=== PATIENT | male | born 1945 | race Caucasian/White ===

== ENCOUNTER 2016-04-16 15:09 | Inpatient (IN) | payer BC ==
[2016-04-16 15:18] VITALS: BMI 30.7
[2016-04-16] MEDS ORDERED: HYDROmorphone HCL CARPU-JECT 1 MG/1 ML DISP.SYRIN ONE ×2 (19:00→21:14)
[2016-04-16] MEDS ORDERED: CLINDAMYCIN 600MG PREMIX IVPB 50 ML IVPB ONE (19:05)
[2016-04-16] MEDS ORDERED: HYDROmorphone HCL CARPU-JECT 1 MG/1 ML DISP.SYRIN IVPUSH ONE (19:23)
--- NOTE | 2016-04-16 19:25 | PDOC ---
History of Present Illness - General History Source: Patient, Family Exam Limitations: No Limitations - History of Present Illness Initial Comments: 04/16/16 19:24 Patient was walking in one of his properties, when he stepped on a piece of wood that had a nail protruding, impaling the dorsum of right foot at instep. Patient states became progressively more painful, was seen by sports trainer on Saturday and was placed on antibiotics but since that time has progressively become more painful and swollen and red. Patient came on assistance of Dr. Nhan Tilley for evaluation. 04/16/16 20:10 Timing/Duration: reports: getting worse Severity: Yes: moderate Location: reports: feet (right foot ) Associated Symptoms: reports: denies symptoms, blisters, flushing <Nano Bullard - Last Filed: 04/16/16 20:10> <Ana Maria Menendez - Last Filed: 04/17/16 01:55> - General Chief Complaint: Redness To Affected Area Stated Complaint: RT FOOT INFECTION Time Seen by Provider: 04/16/16 19:01 Past History - Travel Traveled outside of the country in the last 30 days: No Close contact w/someone who was outside of country & ill: No - Past Medical History Cardiac Disorders: Yes GI Disorders: Yes (ileostomy) HTN: Yes Hypercholesterolemia: Yes - Surgical History Abdominal Surgery: Yes - Psycho/Social/Smoking Cessation Hx Suicidal Ideation: No Smoking Status: No Smoking History: Unknown if ever smoked Have you smoked in the past 12 months: No Number of Cigarettes Smoked Daily: 0 Hx Alcohol Use: Yes (Occasional) Drug/Substance Use Hx: No Substance Use Type: Alcohol Hx Substance Use Treatment: No <Nano Bullard - Last Filed: 04/16/16 20:10> <Ana Maria Menendez - Last Filed: 04/17/16 01:55> - Past Medical History Allergies/Adverse Reactions: Allergies Allergy/AdvReac Type Severity Reaction Status Date / Time amlodipine besylate Allergy Verified 04/17/16 00:25 [From [facility]] iodine [Iodine] Allergy Verified 04/16/16 15:15 Home Medications: Ambulatory Orders Cholecalciferol (Vitamin D3) [Vitamin D3 -] 1,000 unit NR DAILY #0 tab 07/10/11 Loperamide HCl [Imodium -] 4 mg PO AC #0 capsule 04/17/12 Psyllium Seed [Metamucil] 5.85 gm PO TID #0 packet 07/10/11 Alprazolam [Xanax] 0.5 mg PO Q4H PRN 04/16/16 Amlodipine/Atorvastatin [Amlodipine-Atorvast 10-10 mg] 10 each PO 04/16/16 Androgel 1.62 mg Q2D 04/16/16 Atorvastatin Ca [Lipitor] 20 mg PO HS 04/16/16 Cholecalciferol (Vitamin D3) [Vitamin D3] 5,000 unit PO 04/16/16 Doxazosin Mesylate [Cardura] 4 mg PO 04/16/16 Doxazosin Mesylate [Cardura] 4 mg PO 04/16/16 Fenofibrate Nanocrystallized [Fenofibrate] 145 mg PO 04/16/16 Icosapent Ethyl [Vascepa] 1 gm PO BID 04/16/16 Metoprolol Succinate [Toprol Xl -] 50 mg PO BID 04/16/16 Sertraline HCl [Zoloft] 150 mg PO HS 04/16/16 Sodium Bicarbonate - 1,300 mg PO TID 04/16/16 Review of Systems - Review of Systems Able to Perform ROS?: Yes Is the patient limited [place] proficient: Yes Constitutional: Yes: Symptoms Reported, See HPI, Chills, Malaise Respiratory: Yes: See HPI, Cough Musculoskeletal: Yes: Symptoms Reported, See HPI, Joint Swelling, Joint Stiffness Integumentary: Yes: Symptoms Reported, See HPI, Erythema Neurological: Yes: Tingling (diminished sensation to toes) All Other Systems: Reviewed and Negative <Nano Bullard - Last Filed: 04/16/16 20:10> *Physical Exam - Vital Signs Last Vital Signs Temp Pulse Resp BP Pulse Ox 97.4 F L 69 18 167/82 100 04/16/16 18:35 04/16/16 18:35 04/16/16 18:35 04/16/16 18:35 04/16/16 18:35 - Physical Exam General Appearance: Yes: Nourished, Appropriately Dressed, Apparent Distress, Mild Distress HEENT: positive: SADIQ, TMs Normal Neck: positive: Tender, Supple Respiratory/Chest: positive: Lungs Clear Gastrointestinal/Abdominal: positive: Soft Musculoskeletal: negative: Normal Inspection Extremity: positive: Tender, Swelling, Erythema (bright red erythema with swelling , significant with erythema extending to mid tibial area. Has tenderness extending from down into foot. Able to wiggle toes but sensation is diminished. Has a foul-smelling fluctuant blister to the anterior aspect of right foot at instep. With a puncture wound. No purulent drainage exuding. Has exquisite tenderness to all of foot). negative: Normal Capillary Refill, Normal Inspection, Normal Range of Motion Integumentary: positive: Warm, Pale, Swelling Neurologic: positive: signal maintainer helper II-XII NML intact, Fully Oriented, Alert, Normal Mood/ Affect, Normal Response, Motor Strength 5/5 <Nano Bullard - Last Filed: 04/16/16 20:10> - Vital Signs Last Vital Signs Temp Pulse Resp BP Pulse Ox 97.4 F L 69 18 167/82 100 04/16/16 18:35 04/16/16 18:35 04/16/16 18:35 04/16/16 18:35 04/16/16 18:35 <Ana Maria Menendez - Last Filed: 04/17/16 01:55> ED Treatment Course - LABORATORY CBC & Chemistry Diagram: 04/16/16 19:10 04/16/16 19:10 - RADIOLOGY Radiology Studies Ordered: Category Date Time Status CHEST PA & LAT [RAD] Stat Radiology 04/16/16 19:04 Ordered FOOT-RIGHT [RAD] Stat Radiology 04/16/16 19:08 Ordered <Nano Bullard - Last Filed: 04/16/16 20:10> - LABORATORY CBC & Chemistry Diagram: 04/16/16 19:10 04/16/16 19:10 - ADDITIONAL ORDERS Additional order review: Laboratory Results 04/16/16 19:10 INR 1.51 H 04/16/16 19:10 RBC 5.83 H D MCV 83.8 MCHC 31.6 L RDW 19.6 H D MPV 8.7 Neutrophils % Y Lymphocytes % Y <Ana Maria Menendez - Last Filed: 04/17/16 01:55> Progress Note - Progress Note Progress Note: Severe cellulitis of right foot. Discussed case with Dr. Herzog who agrees will be admitted, Dr. Dutton will be contacted, Dr. Hairston consult <Nano Bullard - Last Filed: 04/16/16 20:10> Medical Decision Making - Medical Decision Making 04/16/16 20:20 71-year-old male was initially seen in fast track for a foot wound and transferred to the main ER because the patient will need admission for IV antibiotics and cellulitis. Patient has a complex past medical history as described by Dr. Selby , who presently is evaluating the patient. Infectious disease has been consulted and Dr. Christian has is recommending specific antibiotics 04/17/16 01:55 <Ana Maria Menendez - Last Filed: 04/17/16 01:55> *DC/Admit/Observation/Transfer - Discharge Dispostion Admit: Yes <Nano Bullard - Last Filed: 04/16/16 20:10> <Ana Maria Menendez - Last Filed: 04/17/16 01:55> Diagnosis at time of Disposition: Cellulitis and abscess of foot - Discharge Dispostion Condition at time of disposition: Stable - Referrals
[2016-04-16 19:58] LABS: MCH 26.5 pg (25.7-33.7); MCHC 31.6 g/dl (32.0-35.9); MEAN CELL VOLUME 83.8 fl (80-96); MEAN PLT VOLUME 8.7 fl (7.5-11.1); PLATELET COUNT 199 K/MM3 (134-434); RDW 19.6 % (11.9-15.9); WHITE BLOOD COUNT 13.1 K/mm3 (4.0-10.0)
[2016-04-16] MEDS ORDERED: ALPRAZolam 0.25 MG TABLET PO PRN (20:01)
[2016-04-16] MEDS ORDERED: HYDROmorphone HCL CARPU-JECT 1 MG/1 ML DISP.SYRIN IVPUSH PRN (20:06)
[2016-04-16 20:11] LABS: INR 1.51 (0.82-1.09); PROTHROMBIN TIME (PATIENT) 16.8 SEC (9.98-11.88)
[2016-04-16 20:13] LABS: URINE APPEARANCE CLEAR; URINE BILIRUBIN NEGATIVE (NEGATIVE); URINE COLOR YELLOW; URINE GLUCOSE (UA) NEGATIVE (NEGATIVE); URINE KETONE NEGATIVE (NEGATIVE); URINE LEUK ESTERASE NEGATIVE (NEGATIVE); URINE NITRITE NEGATIVE (NEGATIVE); URINE UROBILINOGEN NEGATIVE E.U./dl (0.2-1.0)
[2016-04-16 20:22] LABS: URINE BLOOD 1+ (NEGATIVE); URINE PROTEIN 1+ (NEGATIVE)
--- NOTE | 2016-04-16 20:22 | HP ---
Admitting History and Physical - Primary Care Physician PCP: Nhan Herzog - Admission Chief Complaint: Right foot pain and swelling History of Present Illness: Stepped on a nail at work and was unaware of the injury to his right foot until noting bleeding when removing his shoe last Saturday. Saw his Sole Stapler Welt Dr Maguire, who did an x-ray and ordered cefuroxime 250 mg po bid. Seen again today and the superintendent logging called me to relate the history and say that the swelling and redness had increased. I recommended he come to ER for likely need for admission for cellulitis, rule out possible abscess. Denies chest discomfort. Increased pain noted in the right foot. 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 - Smoking History Smoking history: Unknown if ever smoked Have you smoked in the past 12 months: No Aproximately how many cigarettes per day: 0 - Alcohol/Substance Use Hx Alcohol Use: Yes (Occasional) <Nhan Herzog - Last Filed: 04/16/16 20:49> Home Medications <Nhan Herzog - Last Filed: 04/16/16 20:49> <Ana Maria Menendez - Last Filed: 04/16/16 20:54> - Allergies Allergies/Adverse Reactions: Allergies Allergy/AdvReac Type Severity Reaction Status Date / Time iodine [Iodine] Allergy Verified 04/16/16 15:15 benazepril HCl [From Lotrel] AdvReac Unverified 04/16/16 20:29 - Home Medications Home Medications: Ambulatory Orders Cholecalciferol (Vitamin D3) [Vitamin D3 -] 1,000 unit NR DAILY #0 tab 07/10/11 Loperamide HCl [Imodium -] 4 mg PO AC #0 capsule 07/10/11 Psyllium Seed [Metamucil] 5.85 gm PO TID #0 packet 07/10/11 Alprazolam [Xanax] 0.5 mg PO Q4H PRN 04/16/16 Amlodipine/Atorvastatin [Amlodipine-Atorvast 10-10 mg] 10 each PO 04/16/16 Androgel 1.62 mg Q2D 04/16/16 Atorvastatin Ca [Lipitor] 20 mg PO HS 04/16/16 Cholecalciferol (Vitamin D3) [Vitamin D3] 5,000 unit PO 04/16/16 Doxazosin Mesylate [Cardura] 4 mg PO 04/16/16 Doxazosin Mesylate [Cardura] 4 mg PO 04/16/16 Fenofibrate Nanocrystallized [Fenofibrate] 145 mg PO 04/16/16 Icosapent Ethyl [Vascepa] 1 gm PO BID 04/16/16 Metoprolol Succinate [Toprol Xl -] 50 mg PO BID 04/16/16 Sertraline HCl [Zoloft] 150 mg PO HS 04/16/16 Sodium Bicarbonate - 1,300 mg PO TID 04/16/16 Family Disease History - Family Disease History Family History: Unremarkable <Nhan Herzog - Last Filed: 04/16/16 20:49> Review of Systems - Review of Systems Constitutional: reports: Chills, Lethargy Eyes: reports: No Symptoms HENT: reports: No Symptoms Neck: reports: No Symptoms Cardiovascular: reports: No Symptoms Respiratory: reports: No Symptoms Gastrointestinal: reports: No Symptoms Genitourinary: reports: No Symptoms Musculoskeletal: reports: Other (Foot pain as above) Integumentary: reports: Wound (plantar aspect of right foot puncture wound) Endocrine: reports: No Symptoms Psychiatric: reports: Anxiety <Nhan Herzog - Last Filed: 04/16/16 20:49> Physical Examination Vital Signs: Vital Signs Temperature 97.4 F L 04/16/16 18:35 Pulse Rate 69 04/16/16 18:35 Respiratory Rate 18 04/16/16 18:35 Blood Pressure 167/82 04/16/16 18:35 O2 Sat by Pulse Oximetry (%) 100 04/16/16 18:35 Constitutional: Yes: Anxious, Moderate Distress Eyes: Yes: Conjunctiva Clear HENT: Yes: Atraumatic Neck: Yes: Supple Cardiovascular: Yes: Regular Rate and Rhythm Respiratory: Yes: CTA Bilaterally Gastrointestinal: Yes: Normal Bowel Sounds, Other (ostomies). No: Ascites, Palpable Mass, Pulsatile Mass, Tenderness ...Rectal Exam: Yes: Deferred Extremities: Yes: Erythema, Other (swelling right foot puncture wound plantar surface below second toe) Integumentary: Yes: Erythema (right foot) Neurological: Yes: Alert, Oriented Labs: CBC, BMP 04/16/16 19:10 <Nhan Herzog - Last Filed: 04/16/16 20:49> Vital Signs: Vital Signs Temperature 97.4 F L 04/16/16 18:35 Pulse Rate 69 04/16/16 18:35 Respiratory Rate 18 04/16/16 18:35 Blood Pressure 167/82 04/16/16 18:35 O2 Sat by Pulse Oximetry (%) 100 04/16/16 18:35 Labs: CBC, BMP 04/16/16 19:10 04/16/16 19:10 <Ana Maria Menendez - Last Filed: 04/16/16 20:54> Problem List - Problems (1) Cellulitis and abscess of foot Assessment/Plan: Puncture wound IV antibiotics r/o abscess Be on alert for gangrenous changes ID assessment Possible surgical assessment as needed Code(s): L03.119 - CELLULITIS OF UNSPECIFIED PART OF LIMB L02.619 - CUTANEOUS ABSCESS OF UNSPECIFIED FOOT (2) Dyslipidemia Assessment/Plan: Severe hypertriglyceridemia with very low HDL-C currently stable on last office testing Code(s): E78.5 - HYPERLIPIDEMIA, UNSPECIFIED (3) Insulin resistance Assessment/Plan: Monitor diet HBA1C testing has been normal Code(s): E88.81 - METABOLIC SYNDROME (4) Acidosis, hyperchloremic 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
[2016-04-16 20:29] LABS: ANISOCYTOSIS 2+; PLATELET COMMENT2 NO CLUMPING NOTED; PLATELET ESTIMATE ADEQUATE (NORMAL)
[2016-04-16 20:30] LABS: DOHLE BODIES 1+; MICROCYTOSIS 1+; OVALOCYTES 1+
[2016-04-16 20:41] LABS: ALBUMIN 3.7 g/dl (3.4-5.0)
[2016-04-16 20:43] LABS: BILIRUBIN,TOTAL 0.7 mg/dL (0.2-1.0); CREATININE 1.7 mg/dL (0.7-1.3); TOT PROT 7.6 g/dl (6.4-8.2)
--- NOTE | 2016-04-16 20:55 | PDOC ---
*Physical Exam - Vital Signs Last Vital Signs Temp Pulse Resp BP Pulse Ox 97.4 F L 69 18 167/82 100 04/16/16 18:35 04/16/16 18:35 04/16/16 18:35 04/16/16 18:35 04/16/16 18:35 ED Treatment Course - LABORATORY CBC & Chemistry Diagram: 04/16/16 19:10 04/16/16 19:10 - ADDITIONAL ORDERS Additional order review: Laboratory Results 04/16/16 04/16/16 04/16/16 19:55 19:10 19:10 INR Sodium 135 L Potassium 4.5 Chloride 105 Carbon Dioxide 21 Anion Gap 9 BUN 31 H D Creatinine 1.7 H D Creat Clearance w eGFR 39.93 Random Glucose 90 Calcium 9.0 Total Bilirubin 0.7 D AST 35 D ALT 44 D Alkaline Phosphatase 54 D C-Reactive Protein 16.6 H Total Protein 7.6 Albumin 3.7 Urine Color Yellow Urine Appearance Clear Urine pH 6.0 Ur Specific [place] 1.017 Urine Protein 1+ H Urine Glucose (UA) Negative Urine Ketones Negative Urine Blood 1+ H Urine Nitrite Negative Urine Bilirubin Negative Urine Urobilinogen Negative Ur Leukocyte Esterase Negative 04/16/16 19:10 INR 1.51 H Sodium Potassium Chloride Carbon Dioxide Anion Gap BUN Creatinine Creat Clearance w eGFR Random Glucose Calcium Total Bilirubin AST ALT Alkaline Phosphatase C-Reactive Protein Total Protein Albumin Urine Color Urine Appearance Urine pH Ur Specific [place] Urine Protein Urine Glucose (UA) Urine Ketones Urine Blood Urine Nitrite Urine Bilirubin Urine Urobilinogen Ur Leukocyte Esterase 04/16/16 19:10 RBC 5.83 H D MCV 83.8 MCHC 31.6 L RDW 19.6 H D MPV 8.7 Neutrophils % 78.0 Lymphocytes % 6.0 L D Monocytes % 10.0 Eosinophils % 1.0 *DC/Admit/Observation/Transfer Diagnosis at time of Disposition: Cellulitis and abscess of foot - Discharge Dispostion Condition at time of disposition: Stable Admit: Yes - Referrals Referrals: Nhan Herzog MD [Primary Care Provider] - - Patient Instructions - Post Discharge Activity
[2016-04-16] MEDS ORDERED: VANCOMYCIN 1 GRAM (PRE-DOCKED) 250 ML IVPB SCH (21:00)
[2016-04-16] MEDS ORDERED: SODIUM CHLORIDE 1,000 ML IV SCH (21:15)
[2016-04-16] MEDS ORDERED: VANCOMYCIN 1 GRAM (PRE-DOCKED) 250 ML IVPB ONE (21:41)
[2016-04-16] MEDS ORDERED: PIPERACILLIN/TAZOB 3.375 GM 50 ML IVPB ONE (21:42)
[2016-04-16] MEDS: PIPERACILLIN/TAZOB 3.375 GM 50 ML IVPB SCH (22:04)
[2016-04-16] MEDS: HEPARIN NA (PORCINE) 5,000 UNITS/ML 1ML VIAL SQ SCH (23:59)
[2016-04-16] MEDS: amLODIPine BESYLATE 10 MG TABLET (FP) PO SCH (23:59)
[2016-04-16] MEDS: SERTRALINE HCL 50 MG TABLET (FP) PO SCH (23:59)
[2016-04-17] MEDS ORDERED: HYDROmorphone HCL CARPU-JECT 1 MG/1 ML DISP.SYRIN ONE ×3 (00:05→05:02)
[2016-04-17] MEDS: HYDROmorphone HCL CARPU-JECT 1 MG/1 ML DISP.SYRIN IVPB PRN ×8 (02:24→22:34)
[2016-04-17] MEDS: PIPERACILLIN/TAZOB 3.375 GM 50 ML IVPB SCH ×2 (03:51→18:01)
[2016-04-17] MEDS ORDERED: PIPERACILLIN/TAZOB 3.375 GM 50 ML IVPB ONE (05:54)
[2016-04-17] MEDS: SODIUM BICARBONATE 650 MG TABLET PO SCH ×4 (07:43→21:24)
[2016-04-17 08:09] LABS: BASOPHIL 0.3 % (0-2.0); EOSINOPHIL 1.9 % (0-4.5); MCH 26.9 pg (25.7-33.7); MCHC 32.2 g/dl (32.0-35.9); MEAN CELL VOLUME 83.6 fl (80-96); MEAN PLT VOLUME 8.4 fl (7.5-11.1); NEUTROPHILS 81.8 % (42.8-82.8); PLATELET COUNT 196 K/MM3 (134-434); RDW 19.1 % (11.9-15.9); WHITE BLOOD COUNT 10.3 K/mm3 (4.0-10.0)
[2016-04-17 09:07] LABS: ALBUMIN 3.2 g/dl (3.4-5.0); BILIRUBIN,TOTAL 0.5 mg/dL (0.2-1.0); CALCIUM 8.8 mg/dL (8.5-10.1); CREATININE 1.5 mg/dL (0.7-1.3); TOT PROT 6.5 g/dl (6.4-8.2)
--- NOTE | 2016-04-17 09:21 | PN ---
Progress Note, Physician Chief Complaint: Right foot cellulitis/abscess from puncture wound History of Present Illness: As per admission note, nail puncture wound from Saturday04/13/16, seen by Mud Engineer and treated with oral cefurxime 250 mg po bid Seen again yesterday with worsening of cellulitic reaction, now associated with increased pain. Admitted via ER and started on Zosyn and Vancomycin. X-ray reviewed. This AM has persistence of pain, redness and swelling, now with drainage of pus from puncture wound site. Seen by ID and surgeon notified. May require I+D. Denies new chest discomfort, palpitations, LAMA. Marked anxiety noted. - Current Medication List Current Medications: Active Medications Alprazolam (Xanax -) 1 mg PO Q6H PRN PRN Reason: ANXIETY Amlodipine Besylate (Norvasc -) 10 mg PO DAILY [facility] Last Admin: 04/16/16 23:59 Dose: Not Given Doxazosin Mesylate (Cardura -) 4 mg PO DAILY [facility] Heparin Sodium (Porcine) (Heparin -) 5,000 unit SQ BID [facility] Last Admin: 04/16/16 23:59 Dose: 5,000 unit Hydromorphone HCl (Dilaudid Injection -) 1 mg IVPB Q2H PRN PRN Reason: PAIN Last Admin: 04/17/16 04:57 Dose: 1 mg Vancomycin HCl (Vancomycin (Pre-Docked)) 250 mls @ 150 mls/hr IVPB BID@0900, 2100 [facility] Last Admin: 04/16/16 23:31 Dose: 150 mls/hr Piperacillin Sod/Tazobactam Sod (Zosyn 3.375gm Ivpb (Pre-Docked)) 50 mls @ 100 mls/hr IVPB Q8H-IV [facility] Last Admin: 04/17/16 03:51 Dose: 100 mls/hr Sodium Chloride (Normal Saline -) 1,000 mls @ 42 mls/hr IV ASDIR [facility] Last Admin: 04/16/16 22:04 Dose: 42 mls/hr Metoprolol Succinate (Toprol Xl -) 50 mg PO BID [facility] Last Admin: 04/17/16 00:00 Dose: Not Given Sertraline HCl (Zoloft -) 150 mg PO DAILY [facility] Last Admin: 04/16/16 23:59 Dose: Not Given Sodium Bicarbonate (Sodium Bicarbonate -) 1,300 mg PO TID [facility] Last Admin: 04/17/16 07:43 Dose: 1,300 mg - Objective Vital Signs: Vital Signs Temperature 98.3 F 04/17/16 06:30 Pulse Rate 98 H 04/17/16 06:30 Respiratory Rate 20 04/17/16 06:30 Blood Pressure 157/72 04/17/16 06:30 O2 Sat by Pulse Oximetry (%) 100 04/16/16 18:35 Constitutional: Yes: Well Nourished, Anxious Eyes: Yes: Conjunctiva Clear HENT: Yes: WNL Neck: Yes: Supple Cardiovascular: Yes: Regular Rate and Rhythm Respiratory: Yes: CTA Bilaterally Gastrointestinal: Yes: Normal Bowel Sounds, Soft, Other (ostomies). No: Palpable Mass, Tenderness Extremities: Yes: Other (Right foot with erythema, drainage form puncture wound site on plantar surface and marked pain to local palpation) Neurological: Yes: Alert, Oriented Labs: CBC, BMP 04/17/16 08:00 04/17/16 08:00 INR, PTT INR 1.51 (0.82-1.09) H 04/16/16 19:10 - ....Imaging Chest X-ray: Image Reviewed X-ray: Image Reviewed (Right Foot) Problem List - Problems (1) Cellulitis and abscess of foot Assessment/Plan: Puncture wound IV antibiotics Likely abscess Be on alert for gangrenous changes ID assessment Surgical assessment pending Code(s): L03.119 - CELLULITIS OF UNSPECIFIED PART OF LIMB L02.619 - CUTANEOUS ABSCESS OF UNSPECIFIED FOOT (2) Dyslipidemia Assessment/Plan: Severe hypertriglyceridemia with very low HDL-C currently stable on last office testing Code(s): E78.5 - HYPERLIPIDEMIA, UNSPECIFIED (3) Insulin resistance Assessment/Plan: Monitor diet HBA1C testing has been normal Labs reviewed Code(s): E88.81 - METABOLIC SYNDROME (4) Acidosis, hyperchloremic 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
--- NOTE | 2016-04-17 09:29 | PN ---
Progress Note (short form) - Note Progress Note: ID Consult dictated imp/reccd 71 year old man with abscess on sole of foot he stepped on a nail last Saturday saw podiatry on Saturday started on ceftin, went back to podiatry on Saturday who sent him to ED no fevers or chills UTD on tetanus vaccine history of MRSA (remote)- thigh abscess vanco/zosyn surgical consult- d/w Dr Hairston f/u cultures f/u vancomycin trough d/w Dr Herzog
[2016-04-17] MEDS ORDERED: DOXAZOSIN MESYLATE 4 MG TABLET PO SCH (10:00)
[2016-04-17] MEDS ORDERED: HYDROmorphone HCL CARPU-JECT 2 MG/1 ML DISP.SYRIN ONE ×2 (10:09→14:33)
--- NOTE | 2016-04-17 11:02 | EKG ---
Test Reason : Blood Pressure : / mmHG Vent. Rate : 069 BPM Atrial Rate : 267 BPM P-R Int : 000 ms QRS Dur : 108 ms QT Int : 414 ms P-R-T Axes : 032 040 074 degrees QTc Int : 443 ms SINUS RHYTHM INCOMPLETE RIGHT BUNDLE BRANCH BLOCK ABNORMAL ECG WHEN COMPARED WITH ECG OF 02-JUL-2011 13:23, INCOMPLETE RIGHT BUNDLE BRANCH BLOCK IS NOW PRESENT Confirmed by CHAPINCITO BRYANT MD ([id number]) on 04/17/2016 11:02:06 AM Referred By: Confirmed By:CHAPINCITO BRYANT MD
[2016-04-17] MEDS: SERTRALINE HCL 50 MG TABLET (FP) PO SCH (11:49)
[2016-04-17] MEDS: amLODIPine BESYLATE 10 MG TABLET (FP) PO SCH (11:49)
[2016-04-17] MEDS: METOPROLOL SUCCINATE 50 MG TAB.SR.24H (FP) PO SCH ×3 (11:49→21:24)
[2016-04-17] MEDS: HEPARIN NA (PORCINE) 5,000 UNITS/ML 1ML VIAL SQ SCH ×2 (12:02→21:23)
[2016-04-17] MEDS ORDERED: LIDOCAINE HCL 1%, 10 MG/ML (20ML VIAL) ONE (12:22)
[2016-04-17] MEDS ORDERED: MIDAZOLAM HCL 2 MG/2 ML SINGLE DOSE VIAL ONE ×2 (12:37→12:43)
--- NOTE | 2016-04-17 12:37 | PN ---
Progress Note (short form) - Note Progress Note: Vascular surgery Pt seen and examined in ER Palpable pulses. Right foot trauma from nail. Will take to OR for incision and drainage. Jose Alejandro Hairston dO
[2016-04-17] MEDS ORDERED: PROPOFOL 20 ML ONE (12:45)
[2016-04-17] MEDS ORDERED: LIDOCAINE HCL 1%, 10 MG/ML (50 mL VIAL) IJ ONE (12:47)
--- NOTE | 2016-04-17 13:09 | OP ---
Operative Note - Note: Operative Date: 04/17/16 Pre-Operative Diagnosis: Right foot abscess Operation: Incision and drainage of right foot abscess Post-Operative Diagnosis: Same as Pre-op Surgeon: Jose Alejandro Hairston Anesthesia: Fractional Estimated Blood Loss (mls): 10 Operative Report Dictated: Yes
[2016-04-17] MEDS ORDERED: ONDANSETRON 4 MG/2 ML VIAL IVPUSH PRN (13:13)
--- NOTE | 2016-04-17 13:14 | PN ---
Progress Note (short form) - Note Progress Note: Vascular Surgery right foot incision and drainage performed. Cx of wound taken. Minimal pus. Two incisions made to decompress foot. Will follow. Daily 1/2 inch iodoform dressing changes. IV antibiotics Jose Alejandro Hairston DO
[2016-04-17] MEDS ORDERED: LACTATED RINGERS SOLUTION 1,000 ML IV SCH (13:15)
[2016-04-17] MEDS ORDERED: PIPERACILLIN/TAZOB 3.375 GM/50 ML PRE-DOCKED IVPB ONE (14:10)
[2016-04-17] MEDS ORDERED: HYDROmorphone HCL CARPU-JECT 2 MG/1 ML DISP.SYRIN IVPB ONE (14:35)
[2016-04-17] MEDS ORDERED: VANCOMYCIN 1 GRAM (PRE-DOCKED) 1,000 MG/250 ML BAG IVPB ONE (14:41)
--- NOTE | 2016-04-17 16:33 | CONS ---
DATE OF CONSULTATION: DATE OF DICTATION: 04/17/2016 INFECTIOUS DISEASE CONSULTATION REQUESTING PHYSICIAN: Nhan Herzog M.D. HISTORY OF PRESENT ILLNESS: This is a 71-year-old man. He stepped on a nail on Saturday at work. He was unaware of this all day until he noted bleeding when he removed his shoe that evening. He saw his engraver tender on Saturday, who gave him some Ceftin, which he took through the weekend. He returned on Saturday for a wound check. The foot was markedly worse. He was having a lot of pain. He noted chills but no fever, and the engraver tender advised admission. The patient denies any fevers. He does have chills. He notes pain in his foot. He has no nausea, vomiting, diarrhea, or dysuria. He is up to date on his tetanus vaccine. PAST MEDICAL HISTORY: Notable for hypertension, hyperlipidemia, hepatitis C, renal insufficiency, B12 deficiency. He has had a prior MRSA thigh abscess, and he has a history of testosterone deficiency. 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 He has apparently had trouble with poor wound healing, having several wound dehiscence postoperatively. Bilateral knee replacement. ALLERGIES: He is allergic to IODINE and BENAZEPRIL. MEDICATION: His medications as an outpatient include vitamin D3, Imodium, Metamucil, Xanax, amlodipine, atorvastatin, Androgel, Cardura, fenofibrate, Vascepa, Toprol XL, Zoloft, and sodium bicarbonate. FAMILY HISTORY: Unremarkable. SOCIAL HISTORY: He is . He lives with his . There is no history of any cigarette use. REVIEW OF SYSTEMS: Notable for chills and foot pain. PHYSICAL EXAMINATION: General: He is awake and alert. Vital signs: Temperature 98.3, pulse 98, blood pressure 157/72, respiratory rate 20. He is saturating 100%. HEENT: Normocephalic. Eyes are anicteric. Neck: Supple. Lungs: Clear to auscultation. Heart: Regular rate and rhythm. Abdomen: Soft, nontender. Extremities: Notable for well healed scars on both his knees from bilateral knee replacements, and his right foot he has an abscess on the dorsal surface, on the bottom of his foot, that looks like it is with a small amount of purulent drainage. He notes pain on palpation of his foot. LABORATORY: Notable for white count of 13.1 on admission, 10.3 this morning. Hemoglobin is 14.4, platelets of 196, INR is 1.5. BUN and creatinine are 27 and 1.5. LFTs are normal. CRP is 16.6 with sedimentation rate of 25. Urinalysis is notable for no leukocyte esterase, 1+ blood. Blood cultures and cultures of the abscess are pending. Chest x-ray is negative, there are no obvious signs of osteoarthritis on the foot, and chest x-ray is negative for infiltrate. IMPRESSION: In summary, this is a 71-year-old man with a foot abscess of his right foot, started on Ceftin who is now on vancomycin and Zosyn. Surgical consultation with Dr. Hairston. He needs drainage of the abscess. Would follow up his cultures. Would follow up a vancomycin level. All of the above with discussed with Dr. Herzog and the patient. He has a history of methicillin resistant Staphylococcus aureus in the distant past. CAROL GAN M.D. [id number]
[2016-04-17] MEDS: SODIUM CHLORIDE 1,000 ML IV SCH (17:16)
[2016-04-17] MEDS: VANCOMYCIN 1 GRAM (PRE-DOCKED) 250 ML IVPB SCH (21:23)
[2016-04-18] MEDS: HYDROmorphone HCL CARPU-JECT 1 MG/1 ML DISP.SYRIN IVPB PRN ×7 (00:59→20:31)
[2016-04-18] MEDS: PIPERACILLIN/TAZOB 3.375 GM 50 ML IVPB SCH ×3 (02:35→18:16)
[2016-04-18] MEDS: SODIUM BICARBONATE 650 MG TABLET PO SCH ×3 (06:44→22:05)
[2016-04-18 07:29] LABS: BASOPHIL 0.4 % (0-2.0); EOSINOPHIL 1.6 % (0-4.5); MCHC 32.4 g/dl (32.0-35.9); MEAN CELL VOLUME 83.2 fl (80-96); MEAN PLT VOLUME 8.6 fl (7.5-11.1); NEUTROPHILS 78.2 % (42.8-82.8); PLATELET COUNT 197 K/MM3 (134-434); RDW 19.2 % (11.9-15.9); WHITE BLOOD COUNT 7.2 K/mm3 (4.0-10.0)
--- NOTE | 2016-04-18 08:04 | OP ---
DATE OF OPERATION: 04/17/2016 PREOPERATIVE DIAGNOSIS: Right foot abscess. POSTOPERATIVE DIAGNOSIS: Right foot abscess. PROCEDURE: Incision and drainage of right foot. SURGEON: Jose Alejandro rCaft DO ANESTHESIA: Fractional. BLOOD LOSS: 10 mL. INDICATION: The patient is a 71-year-old male who comes in after having trauma from a nail to his right foot last Saturday. He has been following up with his junior engineer as an outpatient, getting antibiotics, but he saw his junior engineer yesterday and he said that he should probably go into the hospital because it did not look good. The patient was seen in the emergency room, had erythema of his right forefoot and drainage from his right plantar aspect from the puncture site of the nail. It was felt that he would need an incision and drainage. The patient was consented for the procedure, understanding all risks, benefits, and alternatives. He was then taken to the operating room. DESCRIPTION OF PROCEDURE: Once in the operating room, he was laid on the operating table in supine manner. The area of the right foot was prepped and draped in a sterile surgical manner. We then injected 20 mL of lidocaine 1% on the forefoot and in the plantar aspect of the right foot between the 1st and 2nd toe. We then went ahead and took a 15-blade and made a 3-cm incision on the plantar aspect at the entry site of the nail, and then we made another 3-cm incision on the forefoot between the 1st and 2nd toe where the area was indurated. Minimal pus came out. The surgical site was then cultured. We then went ahead and used a mosquito clamp and we were able to break up any pockets of abscess that we could find in the area. The wound was then copiously irrigated and 1/2-inch Iodoform packing was placed from the forefoot to the plantar site. We then went ahead and placed ABD pads and Kerlix. The patient tolerated the procedure with no complication. The patient was transferred to the PACU in stable condition. Total blood loss 10 mL. JOSE ALEJANDRO CRAFT DO PROPERTY MANAGEMENT SPECIALIST/[id number]
--- NOTE | 2016-04-18 08:46 | PN ---
Progress Note, Physician Chief Complaint: Right foot cellulitis/abscess from puncture wound History of Present Illness: As per admission note, nail puncture wound from Saturday04/13/16, seen by Sign Hanger Supervisor and treated with oral cefurxime 250 mg po bid Seen again Saturday with worsening of cellulitic reaction, now associated with increased pain. Admitted via ER and started on Zosyn and Vancomycin and seen by ID and surgeon. I+D of right foot infected area/abscess performed yesterday with incisions on dorsal and plantar aspects of foot. Case discussed with Dr Hairston. Note appreciated. Denies new chest discomfort, palpitations, LAMA. Marked anxiety persists. Still requires pain medication. - Current Medication List Current Medications: Active Medications Alprazolam (Xanax -) 1 mg PO Q6H PRN PRN Reason: ANXIETY Amlodipine Besylate (Norvasc -) 10 mg PO DAILY [facility] Doxazosin Mesylate (Cardura -) 4 mg PO DAILY [facility] Heparin Sodium (Porcine) (Heparin -) 5,000 unit SQ BID [facility] Last Admin: 04/17/16 21:23 Dose: 5,000 unit Hydromorphone HCl (Dilaudid Injection -) 1.5 mg IVPB Q2H PRN PRN Reason: PAIN Last Admin: 04/18/16 07:47 Dose: 1.5 mg Lactated Ringer's (Lactated Ringers Solution) 1,000 mls @ 75 mls/hr IV ASDIR [facility] Last Admin: 04/17/16 15:30 Dose: Not Given Sodium Chloride (Normal Saline -) 1,000 mls @ 42 mls/hr IV ASDIR [facility] Last Admin: 04/17/16 17:16 Dose: Not Given Vancomycin HCl (Vancomycin (Pre-Docked)) 250 mls @ 150 mls/hr IVPB BID@0900, 2100 [facility] Last Admin: 04/17/16 21:23 Dose: 150 mls/hr Piperacillin Sod/Tazobactam Sod (Zosyn 3.375gm Ivpb (Pre-Docked)) 50 mls @ 100 mls/hr IVPB Q8H-IV [facility] Last Admin: 04/18/16 02:35 Dose: 100 mls/hr Metoprolol Succinate (Toprol Xl -) 50 mg PO BID [facility] Last Admin: 04/17/16 21:24 Dose: 50 mg Sertraline HCl (Zoloft -) 150 mg PO DAILY [facility] Sodium Bicarbonate (Sodium Bicarbonate -) 1,300 mg PO TID [facility] Last Admin: 04/18/16 06:44 Dose: 1,300 mg - Objective Vital Signs: Vital Signs Temperature 98.8 F 04/18/16 05:50 Pulse Rate 70 04/18/16 05:50 Respiratory Rate 22 04/18/16 05:50 Blood Pressure 140/80 04/18/16 05:50 O2 Sat by Pulse Oximetry (%) 95 04/17/16 21:00 Constitutional: Yes: Anxious, Moderate Distress (in pain during examination and re-insertion of wound packing) Neck: Yes: Supple Cardiovascular: Yes: Regular Rate and Rhythm Respiratory: Yes: CTA Bilaterally Gastrointestinal: Yes: Normal Bowel Sounds, Soft, Other (ostomies functioning) Extremities: Yes: Other (decreased swelling right foot with leg elevated Mild reduction in erythema I+D sites with packing as above) Wound/Incision: Yes: Other (wounds clean packing changed) Neurological: Yes: Alert, Oriented Labs: CBC, BMP 04/18/16 06:00 INR, PTT INR 1.51 (0.82-1.09) H 04/16/16 19:10 Problem List - Problems (1) Cellulitis and abscess of foot Assessment/Plan: Puncture wound post-operative IV antibiotics Continue post-operative care Code(s): L03.119 - CELLULITIS OF UNSPECIFIED PART OF LIMB L02.619 - CUTANEOUS ABSCESS OF UNSPECIFIED FOOT (2) Dyslipidemia Assessment/Plan: Severe hypertriglyceridemia with very low HDL-C Currently stable on last office testing Not on usual meds here Will resume on discharge Code(s): E78.5 - HYPERLIPIDEMIA, UNSPECIFIED (3) Insulin resistance Assessment/Plan: Monitor diet HBA1C testing has been normal Labs reviewed Code(s): E88.81 - METABOLIC SYNDROME (4) Acidosis, hyperchloremic 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
--- NOTE | 2016-04-18 08:49 | PN ---
Progress Note (short form) - Note Progress Note: Patient seen and examined. Patient states he just received pain medication. He feels his foot looks less red and swollen today. He has no other complaints. Last Vital Signs Temp Pulse Resp BP Pulse Ox 98.8 F 70 22 140/80 95 04/18/16 05:50 04/18/16 05:50 04/18/16 05:50 04/18/16 05:50 04/17/16 21:00 CBC, BMP 04/18/16 06:00 Exam: Gen: NAD, resting comfortably RLE: Right foot erythematous on dorsal aspect, dorsal and plantar incisions repacked with Iodoform and 4x4s/Kerlex replaced A/P POD#1 s/p I&D right foot abscess Iodoform packing replaced on rounds Continue packing daily Cont IV abx
[2016-04-18 08:52] LABS: ALBUMIN 2.9 g/dl (3.4-5.0); BILIRUBIN,TOTAL 0.3 mg/dL (0.2-1.0); CALCIUM 8.1 mg/dL (8.5-10.1); CREATININE 1.4 mg/dL (0.7-1.3); TOT PROT 6.5 g/dl (6.4-8.2)
[2016-04-18] MEDS ORDERED: PT OWN MED DRAWER 7, Y5N ONE (09:32)
[2016-04-18] MEDS: DOXAZOSIN MESYLATE 4 MG TABLET PO SCH (09:39)
[2016-04-18] MEDS: METOPROLOL SUCCINATE 50 MG TAB.SR.24H (FP) PO SCH ×2 (09:40→22:05)
[2016-04-18] MEDS: amLODIPine BESYLATE 10 MG TABLET (FP) PO SCH (09:40)
[2016-04-18] MEDS: SERTRALINE HCL 50 MG TABLET (FP) PO SCH (09:40)
[2016-04-18] MEDS: HEPARIN NA (PORCINE) 5,000 UNITS/ML 1ML VIAL SQ SCH ×2 (09:40→22:05)
[2016-04-18] MEDS: VANCOMYCIN 1 GRAM (PRE-DOCKED) 250 ML IVPB SCH ×2 (10:41→22:05)
--- NOTE | 2016-04-18 13:57 | PN ---
Progress Note (short form) - Note Progress Note: s/p incision and drainage of abscess yesterday feels less pressure, less pain wound was packed by surgery earlier this am chills resolved Vital Signs Period Temp Pulse Resp BP Sys/Jackson Pulse Ox Last 24 Hr 97.3 F-99.2 F 64-83 16-22 90-143/56-80 95-96 cor-rrr llungs clear abd soft,nt ext +erythema, still some purulence, wound packed CBC, BMP 04/18/16 06:00 04/18/16 06:00 Laboratory Tests 04/16/16 04/16/16 04/18/16 19:10 19:10 09:00 ESR 25 H C-Reactive Protein 16.6 H Vancomycin Trough 9.530 Microbiology 04/17/16 12:50 Abscess Gram Stain - Final 04/17/16 12:50 Abscess Wound Culture - Preliminary Staphylococcus Latex Coag Pos Pending Organism 04/16/16 19:55 Foot - Right Instep Gram Stain - Final 04/16/16 19:55 Foot - Right Instep Wound Culture - Preliminary Lactose Fermenting Neg Bacilli Staphylococcus Latex Coag Pos Group D Strep Or Entero Coccus 04/16/16 19:55 Blood - Peripheral Venous Blood Culture - Preliminary NO GROWTH OBTAINED AFTER 24 HOURS, INCUBATION TO CONTINUE FOR 4 DAYS. 04/16/16 19:10 Blood - Peripheral Venous Blood Culture - Preliminary NO GROWTH OBTAINED AFTER 24 HOURS, INCUBATION TO CONTINUE FOR 4 DAYS. a/p s/p drainage of foot abscess ideally would like to get MRI to determine duration of treatment he had bilateral TKR and is not sure he can have MRI- has implant papers at home I have asked him to have her bring the papers continue vanco/zosyn f/u cultures mri will be useful in helping determine duration of iv treatment
[2016-04-18] MEDS: ALPRAZolam 2 MG TABLET PO PRN (22:05)
[2016-04-18] MEDS: SODIUM CHLORIDE 1,000 ML IV SCH (22:06)
[2016-04-19] MEDS: HYDROmorphone HCL CARPU-JECT 1 MG/1 ML DISP.SYRIN IVPB PRN ×6 (00:04→21:33)
[2016-04-19] MEDS: PIPERACILLIN/TAZOB 3.375 GM 50 ML IVPB SCH ×2 (02:51→10:27)
[2016-04-19] MEDS: SODIUM BICARBONATE 650 MG TABLET PO SCH ×3 (06:15→21:18)
[2016-04-19 08:00] LABS: BASOPHIL 0.8 % (0-2.0); MCH 26.8 pg (25.7-33.7); MCHC 32.2 g/dl (32.0-35.9); MEAN CELL VOLUME 83.1 fl (80-96); MEAN PLT VOLUME 8.2 fl (7.5-11.1); NEUTROPHILS 71.2 % (42.8-82.8); PLATELET COUNT 190 K/MM3 (134-434); RDW 18.9 % (11.9-15.9); WHITE BLOOD COUNT 5.6 K/mm3 (4.0-10.0)
[2016-04-19 08:12] LABS: INR 1.27 (0.82-1.09)
[2016-04-19 08:29] LABS: ALBUMIN 2.8 g/dl (3.4-5.0); ALK PHOS 46 U/L (45-117); ANION GAP 8 (8-16); BILIRUBIN,TOTAL 0.4 mg/dL (0.2-1.0); CALCIUM 8.4 mg/dL (8.5-10.1); CO2 29 mmol/L (21-32); CREATININE 1.1 mg/dL (0.7-1.3); GLUCOSE,RANDOM 88 mg/dL (74-106); SGOT/AST 32 U/L (15-37); SGPT/ALT 46 U/L (12-78); TOT PROT 6.4 g/dl (6.4-8.2)
--- NOTE | 2016-04-19 09:38 | PN ---
Progress Note, Physician Chief Complaint: Right foot cellulitis/abscess from puncture wound History of Present Illness: As per admission note, nail puncture wound from Saturday04/13/16, seen by Veterinary Technology Instructor and treated with oral cefurxime 250 mg po bid Seen again Saturday with worsening of cellulitic reaction, now associated with increased pain. Admitted via ER and started on Zosyn and Vancomycin and seen by ID and surgeon. I+D of right foot infected area/abscess performed 04/17/16 with incisions on dorsal and plantar aspects of foot. Case discussed with Dr Hairston. Notes appreciated. Denies new chest discomfort, palpitations, LAMA. No chills or rigors. Marked anxiety improved. Still requires pain medication. Wound observed this AM after bandage removal. Appears clean and dry. - Current Medication List Current Medications: Active Medications Alprazolam (Xanax -) 1 mg PO Q6H PRN PRN Reason: ANXIETY Last Admin: 04/18/16 22:05 Dose: 1 mg Amlodipine Besylate (Norvasc -) 10 mg PO DAILY [facility] Last Admin: 04/18/16 09:40 Dose: 10 mg Doxazosin Mesylate (Cardura -) 4 mg PO DAILY [facility] Last Admin: 04/18/16 09:39 Dose: 4 mg Heparin Sodium (Porcine) (Heparin -) 5,000 unit SQ BID [facility] Last Admin: 04/18/16 22:05 Dose: 5,000 unit Hydromorphone HCl (Dilaudid Injection -) 1.5 mg IVPB Q2H PRN PRN Reason: PAIN Last Admin: 04/19/16 06:15 Dose: 1.5 mg Lactated Ringer's (Lactated Ringers Solution) 1,000 mls @ 75 mls/hr IV ASDIR [facility] Last Admin: 04/17/16 15:30 Dose: Not Given Sodium Chloride (Normal Saline -) 1,000 mls @ 42 mls/hr IV ASDIR [facility] Last Admin: 04/18/16 22:06 Dose: 42 mls/hr Vancomycin HCl (Vancomycin (Pre-Docked)) 250 mls @ 150 mls/hr IVPB BID@0900, 2100 [facility] Last Admin: 04/18/16 22:05 Dose: 150 mls/hr Piperacillin Sod/Tazobactam Sod (Zosyn 3.375gm Ivpb (Pre-Docked)) 50 mls @ 100 mls/hr IVPB Q8H-IV [facility] Last Admin: 04/19/16 02:51 Dose: 100 mls/hr Metoprolol Succinate (Toprol Xl -) 50 mg PO BID [facility] Last Admin: 04/18/16 22:05 Dose: 50 mg Sertraline HCl (Zoloft -) 150 mg PO DAILY [facility] Last Admin: 04/18/16 09:40 Dose: 150 mg Sodium Bicarbonate (Sodium Bicarbonate -) 1,300 mg PO TID [facility] Last Admin: 04/19/16 06:15 Dose: 1,300 mg - Objective Vital Signs: Vital Signs Temperature 9.5 F L 04/19/16 06:00 Pulse Rate 61 04/19/16 06:00 Respiratory Rate 20 04/19/16 06:00 Blood Pressure 131/76 04/19/16 06:00 O2 Sat by Pulse Oximetry (%) 96 04/18/16 21:00 Constitutional: Yes: Well Nourished, No Distress, Anxious Eyes: Yes: WNL HENT: Yes: WNL Neck: Yes: WNL Cardiovascular: Yes: Regular Rate and Rhythm Respiratory: Yes: CTA Bilaterally. No: Rales, Rhonchi, Wheezes Gastrointestinal: Yes: Normal Bowel Sounds, Soft, Other (ostomies functioning) Integumentary: Yes: Other (right foot swelling and erythema decreased Wound packing in place) Neurological: Yes: Alert, Oriented Labs: CBC, BMP 04/19/16 07:25 04/19/16 07:25 INR, PTT INR 1.27 (0.82-1.09) H 04/19/16 07:25 Problem List - Problems (1) Cellulitis and abscess of foot Assessment/Plan: Puncture wound post-operative IV antibiotics Continue post-operative care To consider MRI of foot to assess extent and infection and length of antibiotic therapy. Final cultures still pending. 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 has data on knee implant constituents in regard for MRI testing Code(s): Z96.659 - PRESENCE OF UNSPECIFIED ARTIFICIAL KNEE JOINT (7) Renal insufficiency Assessment/Plan: BUN/Creatinine 31/1.7 >> 27/1.5 >> 12/1.1 Continue to follow in light of antibiotic therapy Code(s): N28.9 - DISORDER OF KIDNEY AND URETER, UNSPECIFIED (8) Hypoalbuminemia Assessment/Plan: Likely related to acute infection and underlying chronic disease as well as nutritional factors Code(s): E88.09 - OTH DISORDERS OF PLASMA-PROTEIN METABOLISM, NEC Assessment/Plan Plan as above Proceed with MRI if no evidence of contraindication
[2016-04-19] MEDS ORDERED: PT OWN MED DRAWER 7, Y5N ONE (09:42)
[2016-04-19] MEDS: METOPROLOL SUCCINATE 50 MG TAB.SR.24H (FP) PO SCH ×2 (09:49→21:19)
[2016-04-19] MEDS: amLODIPine BESYLATE 10 MG TABLET (FP) PO SCH (09:49)
[2016-04-19] MEDS: SERTRALINE HCL 50 MG TABLET (FP) PO SCH (09:49)
[2016-04-19] MEDS: HEPARIN NA (PORCINE) 5,000 UNITS/ML 1ML VIAL SQ SCH ×2 (09:49→21:18)
[2016-04-19] MEDS: DOXAZOSIN MESYLATE 4 MG TABLET PO SCH (09:49)
[2016-04-19] MEDS: VANCOMYCIN 1 GRAM (PRE-DOCKED) 250 ML IVPB SCH ×2 (11:08→21:20)
--- NOTE | 2016-04-19 13:43 | PN ---
Progress Note, Physician History of Present Illness: OOB in chair with R LE elevated No c/o pain No c/o fever/ chills Tolerating antibiotics WBC improved Azotemia improved - Current Medication List Current Medications: Active Medications Alprazolam (Xanax -) 1 mg PO Q6H PRN PRN Reason: ANXIETY Last Admin: 04/18/16 22:05 Dose: 1 mg Amlodipine Besylate (Norvasc -) 10 mg PO DAILY [facility] Last Admin: 04/19/16 09:49 Dose: 10 mg Doxazosin Mesylate (Cardura -) 4 mg PO DAILY [facility] Last Admin: 04/19/16 09:49 Dose: 4 mg Heparin Sodium (Porcine) (Heparin -) 5,000 unit SQ BID [facility] Last Admin: 04/19/16 09:49 Dose: 5,000 unit Hydromorphone HCl (Dilaudid Injection -) 1.5 mg IVPB Q2H PRN PRN Reason: PAIN Last Admin: 04/19/16 11:46 Dose: 1.5 mg Lactated Ringer's (Lactated Ringers Solution) 1,000 mls @ 75 mls/hr IV ASDIR [facility] Last Admin: 04/17/16 15:30 Dose: Not Given Sodium Chloride (Normal Saline -) 1,000 mls @ 42 mls/hr IV ASDIR [facility] Last Admin: 04/18/16 22:06 Dose: 42 mls/hr Vancomycin HCl (Vancomycin (Pre-Docked)) 250 mls @ 150 mls/hr IVPB BID@0900, 2100 [facility] Last Admin: 04/19/16 11:08 Dose: 150 mls/hr Piperacillin Sod/Tazobactam Sod (Zosyn 3.375gm Ivpb (Pre-Docked)) 50 mls @ 100 mls/hr IVPB Q8H-IV [facility] Last Admin: 04/19/16 10:27 Dose: 100 mls/hr Metoprolol Succinate (Toprol Xl -) 50 mg PO BID [facility] Last Admin: 04/19/16 09:49 Dose: 50 mg Sertraline HCl (Zoloft -) 150 mg PO DAILY [facility] Last Admin: 04/19/16 09:49 Dose: 150 mg Sodium Bicarbonate (Sodium Bicarbonate -) 1,300 mg PO TID [facility] Last Admin: 04/19/16 06:15 Dose: 1,300 mg - Objective Vital Signs: Vital Signs Temperature 97.8 F 04/19/16 08:00 Pulse Rate 74 04/19/16 08:20 Respiratory Rate 20 04/19/16 08:20 Blood Pressure 144/82 04/19/16 08:20 O2 Sat by Pulse Oximetry (%) 96 04/19/16 08:00 Constitutional: Yes: No Distress Eyes: Yes: Conjunctiva Clear Cardiovascular: Yes: Regular Rate and Rhythm, S1, S2 Respiratory: Yes: CTA Bilaterally Gastrointestinal: Yes: Normal Bowel Sounds, Soft. No: Tenderness Extremities: Yes: Other (R foot wounds packed + erythema/swelling R LE) Labs: CBC, BMP 04/19/16 07:25 04/19/16 07:25 INR, PTT INR 1.27 (0.82-1.09) H 04/19/16 07:25 Assessment/Plan S/P I&D R foot abscess Cellulitis R LE Leukocytosis- resolved Azotemia- improved Wound c/s polymicrobial : MSSA, E coli, Enterococcus Substitute Unasyn for zosyn Continue vancomycin pending sensitivities of Enterococcus
[2016-04-19] MEDS: AMPICILLIN NA/SULBACTAM NA 3 GM in SODIUM CHLORIDE 100 ML IVPB SCH ×2 (16:06→20:45)
[2016-04-19] MEDS: ALPRAZolam 2 MG TABLET PO PRN (16:06)
[2016-04-19] MEDS: SODIUM CHLORIDE 1,000 ML IV SCH (16:51)
[2016-04-20] MEDS: HYDROmorphone HCL CARPU-JECT 1 MG/1 ML DISP.SYRIN IVPB PRN ×4 (00:38→11:52)
[2016-04-20] MEDS: AMPICILLIN NA/SULBACTAM NA 3 GM in SODIUM CHLORIDE 100 ML IVPB SCH ×4 (02:03→22:34)
[2016-04-20] MEDS: SODIUM BICARBONATE 650 MG TABLET PO SCH ×3 (05:44→22:29)
[2016-04-20 08:06] LABS: BASOPHIL 0.7 % (0-2.0); MCH 26.8 pg (25.7-33.7); MCHC 32.4 g/dl (32.0-35.9); MEAN CELL VOLUME 82.6 fl (80-96); MEAN PLT VOLUME 8.3 fl (7.5-11.1); NEUTROPHILS 66.4 % (42.8-82.8); PLATELET COUNT 194 K/MM3 (134-434); RDW 19.1 % (11.9-15.9); WHITE BLOOD COUNT 5.4 K/mm3 (4.0-10.0)
[2016-04-20 08:34] LABS: ALBUMIN 2.6 g/dl (3.4-5.0); ANION GAP 8 (8-16); BILIRUBIN,TOTAL 0.3 mg/dL (0.2-1.0); CALCIUM 8.5 mg/dL (8.5-10.1); CO2 27 mmol/L (21-32); GLUCOSE,RANDOM 89 mg/dL (74-106); SGOT/AST 35 U/L (15-37); SGPT/ALT 53 U/L (12-78); TOT PROT 5.9 g/dl (6.4-8.2)
[2016-04-20 08:35] LABS: ALK PHOS 45 U/L (45-117)
[2016-04-20] MEDS ORDERED: PT OWN MED DRAWER 7, Y5N ONE ×2 (08:51→21:17)
[2016-04-20] MEDS: VANCOMYCIN 1 GRAM (PRE-DOCKED) 250 ML IVPB SCH (08:57)
--- NOTE | 2016-04-20 09:00 | PN ---
Progress Note, Physician Chief Complaint: Right foot cellulitis/abscess from puncture wound History of Present Illness: As per admission note, nail puncture wound from Saturday04/13/16, seen by Digital Marketing Consultant and treated with oral cefurxime 250 mg po bid Seen again Saturday with worsening of cellulitic reaction, now associated with increased pain. Admitted via ER and started on Zosyn and Vancomycin and seen by ID and surgeon. I+D of right foot infected area/abscess performed 04/17/16 with incisions on dorsal and plantar aspects of foot. Currently sitting up in chair OOB with foot raised. Bandage removed. Wounds appear clean erythema decreased dramatically on dorsum of right foot Denies new chest discomfort, palpitations, LAMA. No chills or rigors. Marked anxiety improved. MRI of foot performed Report pending - Current Medication List Current Medications: Active Medications Alprazolam (Xanax -) 1 mg PO Q6H PRN PRN Reason: ANXIETY Last Admin: 04/19/16 16:06 Dose: 1 mg Amlodipine Besylate (Norvasc -) 10 mg PO DAILY [facility] Last Admin: 04/19/16 09:49 Dose: 10 mg Doxazosin Mesylate (Cardura -) 4 mg PO DAILY [facility] Last Admin: 04/19/16 09:49 Dose: 4 mg Heparin Sodium (Porcine) (Heparin -) 5,000 unit SQ BID [facility] Last Admin: 04/19/16 21:18 Dose: 5,000 unit Hydromorphone HCl (Dilaudid Injection -) 1.5 mg IVPB Q2H PRN PRN Reason: PAIN Last Admin: 04/20/16 06:48 Dose: 1.5 mg Lactated Ringer's (Lactated Ringers Solution) 1,000 mls @ 75 mls/hr IV ASDIR [facility] Last Admin: 04/17/16 15:30 Dose: Not Given Sodium Chloride (Normal Saline -) 1,000 mls @ 42 mls/hr IV ASDIR [facility] Last Admin: 04/19/16 16:51 Dose: Not Given Vancomycin HCl (Vancomycin (Pre-Docked)) 250 mls @ 150 mls/hr IVPB BID@0900, 2100 [facility] Last Admin: 04/19/16 21:20 Dose: 150 mls/hr Ampicillin Sodium/Sulbactam (Sodium 3 gm/ Sodium Chloride) 100 mls @ 200 mls/ hr IVPB Q6H-IV [facility] Last Admin: 04/20/16 02:03 Dose: 200 mls/hr Metoprolol Succinate (Toprol Xl -) 50 mg PO BID [facility] Last Admin: 04/19/16 21:19 Dose: 50 mg Sertraline HCl (Zoloft -) 150 mg PO DAILY [facility] Last Admin: 04/19/16 09:49 Dose: 150 mg Sodium Bicarbonate (Sodium Bicarbonate -) 1,300 mg PO TID [facility] Last Admin: 04/20/16 05:44 Dose: 1,300 mg - Objective Vital Signs: Vital Signs Temperature 98.5 F 04/20/16 08:00 Pulse Rate 62 04/20/16 08:00 Respiratory Rate 18 04/20/16 08:00 Blood Pressure 147/83 04/20/16 08:00 O2 Sat by Pulse Oximetry (%) 97 04/19/16 20:26 Constitutional: Yes: Well Nourished, No Distress, Calm Eyes: Yes: WNL HENT: Yes: WNL Neck: Yes: Supple Cardiovascular: Yes: Regular Rate and Rhythm Respiratory: Yes: CTA Bilaterally Gastrointestinal: Yes: Normal Bowel Sounds, Soft, Other (ostomies functioning) Wound/Incision: Yes: Clean/Dry ( Less local erythema) Neurological: Yes: Alert, Oriented Labs: CBC, BMP 04/20/16 06:00 04/20/16 06:00 INR, PTT INR 1.27 (0.82-1.09) H 04/19/16 07:25 - ....Imaging MRI: Image Reviewed Problem List - Problems (1) Cellulitis and abscess of foot Assessment/Plan: Puncture wound post-operative IV antibiotics Continue post-operative care MRI of right foot performed to assess extent and infection and length of antibiotic therapy. Final cultures noted with MSSA, enterococcus and E Coli from initial swab. 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 Code(s): Z96.659 - PRESENCE OF UNSPECIFIED ARTIFICIAL KNEE JOINT (7) Renal insufficiency Assessment/Plan: BUN/Creatinine 31/1.7 >> 27/1.5 >> 12/1.1>>13/1.0 Continue to follow in light of antibiotic therapy Code(s): N28.9 - DISORDER OF KIDNEY AND URETER, UNSPECIFIED (8) Hypoalbuminemia Assessment/Plan: Likely related to acute infection and underlying chronic disease as well as nutritional factors Code(s): E88.09 - OTH DISORDERS OF PLASMA-PROTEIN METABOLISM, NEC Assessment/Plan Plan as above Await MRI report and ID input regarding disposition and length of therapy
[2016-04-20] MEDS: SERTRALINE HCL 50 MG TABLET (FP) PO SCH (09:03)
[2016-04-20] MEDS: amLODIPine BESYLATE 10 MG TABLET (FP) PO SCH (09:03)
[2016-04-20] MEDS: METOPROLOL SUCCINATE 50 MG TAB.SR.24H (FP) PO SCH ×2 (09:03→22:34)
[2016-04-20] MEDS: DOXAZOSIN MESYLATE 4 MG TABLET PO SCH (09:04)
[2016-04-20] MEDS: HEPARIN NA (PORCINE) 5,000 UNITS/ML 1ML VIAL SQ SCH ×2 (09:04→22:34)
[2016-04-20 09:51] LABS: C-REACTIVE PROTEIN 2.8 MG/DL (0.00-0.3)
--- NOTE | 2016-04-20 16:27 | PN ---
Progress Note (short form) - Note Progress Note: dressing done already MRI osteo second toe Vital Signs Period Temp Pulse Resp BP Sys/Jackson Pulse Ox Last 24 Hr 97.6 F-98.5 F 62-71 18-20 138-149/65-84 97-98 cor-rrr lungs clear abd soft,nt ext dressing intact CBC, BMP 04/20/16 06:00 04/20/16 06:00 Microbiology 04/17/16 12:50 Abscess Gram Stain - Final 04/17/16 12:50 Abscess Wound Culture - Final Staphylococcus Aureus Enterococcus Faecalis 04/16/16 19:55 Blood - Peripheral Venous Blood Culture - Preliminary NO GROWTH OBTAINED AFTER 72 HOURS, INCUBATION TO CONTINUE FOR 2 DAYS. 04/16/16 19:10 Blood - Peripheral Venous Blood Culture - Preliminary NO GROWTH OBTAINED AFTER 72 HOURS, INCUBATION TO CONTINUE FOR 2 DAYS. 04/16/16 19:55 Foot - Right Instep Gram Stain - Final 04/16/16 19:55 Foot - Right Instep Wound Culture - Final Escherichia Coli Staphylococcus Aureus Enterococcus Faecalis a/p s/p drainage of foot abscess osteomyelitis of the second toe continue unasyn will need picc lline and iv antibiotics will require 6 weeks now day # d/w family at bedside at length
[2016-04-20] MEDS: SODIUM CHLORIDE 1,000 ML IV SCH (18:07)
[2016-04-20] MEDS: ALPRAZolam 0.25 MG TABLET PO PRN (18:48)
[2016-04-20] MEDS: HYDROmorphone HCL CARPU-JECT 2 MG/1 ML DISP.SYRIN IVPB PRN (23:00)
[2016-04-21] MEDS: HYDROmorphone HCL CARPU-JECT 2 MG/1 ML DISP.SYRIN IVPB PRN ×5 (01:53→22:31)
[2016-04-21] MEDS ORDERED: PT OWN MED DRAWER 7, Y5N ONE ×4 (02:29→20:03)
[2016-04-21] MEDS: AMPICILLIN NA/SULBACTAM NA 3 GM in SODIUM CHLORIDE 100 ML IVPB SCH ×4 (02:40→20:08)
[2016-04-21] MEDS: SODIUM BICARBONATE 650 MG TABLET PO SCH ×3 (06:26→21:44)
[2016-04-21] MEDS: METOPROLOL SUCCINATE 50 MG TAB.SR.24H (FP) PO SCH ×2 (09:08→21:44)
[2016-04-21] MEDS: SERTRALINE HCL 50 MG TABLET (FP) PO SCH (09:08)
[2016-04-21] MEDS: DOXAZOSIN MESYLATE 4 MG TABLET PO SCH (09:08)
[2016-04-21] MEDS: amLODIPine BESYLATE 10 MG TABLET (FP) PO SCH (09:08)
[2016-04-21] MEDS: HEPARIN NA (PORCINE) 5,000 UNITS/ML 1ML VIAL SQ SCH ×2 (09:10→21:44)
--- NOTE | 2016-04-21 11:09 | PN ---
Progress Note, Physician Chief Complaint: Right foot cellulitis/abscess from puncture wound History of Present Illness: As per admission note, nail puncture wound from Saturday04/13/16, seen by Sequins Stringer and treated with oral cefurxime 250 mg po bid Seen again Saturday with worsening of cellulitic reaction, now associated with increased pain. Admitted via ER and started on Zosyn and Vancomycin and seen by ID and surgeon. I+D of right foot infected area/abscess performed 04/17/16 with incisions on dorsal and plantar aspects of foot. Currently sitting up in chair OOB with foot raised. Bandage removed. Wounds appear clean erythema decreased dramatically on dorsum of right foot, with less overall swelling. Denies new chest discomfort, palpitations, LAMA. No chills or rigors. Marked anxiety improved. MRI of foot performed Report consistent with osteomyelitis. - Current Medication List Current Medications: Active Medications Alprazolam (Xanax -) 1 mg PO Q6H PRN PRN Reason: ANXIETY Last Admin: 04/20/16 18:48 Dose: 1 mg Amlodipine Besylate (Norvasc -) 10 mg PO DAILY [facility] [place] Last Admin: 04/21/16 09:08 Dose: 10 mg Doxazosin Mesylate (Cardura -) 4 mg PO DAILY [facility] [place] Last Admin: 04/21/16 09:08 Dose: 4 mg Heparin Sodium (Porcine) (Heparin -) 5,000 unit SQ BID [facility] [place] Last Admin: 04/21/16 09:10 Dose: 5,000 unit Hydromorphone HCl (Dilaudid Injection -) 1.5 mg IVPB Q2H PRN Last Admin: 04/21/16 07:37 Dose: 1.5 mg Lactated Ringer's (Lactated Ringers Solution) 1,000 mls @ 75 mls/hr IV ASDIR [facility] [place] Last Admin: 04/17/16 15:30 Dose: Not Given Sodium Chloride (Normal Saline -) 1,000 mls @ 42 mls/hr IV ASDIR [facility] [place] Last Admin: 04/20/16 18:07 Dose: 42 mls/hr Ampicillin Sodium/Sulbactam (Sodium 3 gm/ Sodium Chloride) 100 mls @ 200 mls/ hr IVPB Q6H-IV [facility] [place] Last Admin: 04/21/16 09:10 Dose: 200 mls/hr Metoprolol Succinate (Toprol Xl -) 50 mg PO BID [facility] [place] Last Admin: 04/21/16 09:08 Dose: 50 mg Sertraline HCl (Zoloft -) 150 mg PO DAILY [facility] [place] Last Admin: 04/21/16 09:08 Dose: 150 mg Sodium Bicarbonate (Sodium Bicarbonate -) 1,300 mg PO TID [facility] [place] Last Admin: 04/21/16 06:26 Dose: 1,300 mg - Objective Vital Signs: Vital Signs Temperature 97.7 F 04/21/16 08:00 Pulse Rate 58 L 04/21/16 08:00 Respiratory Rate 18 04/21/16 08:00 Blood Pressure 161/72 04/21/16 08:00 O2 Sat by Pulse Oximetry (%) 98 04/20/16 21:00 Constitutional: Yes: Well Nourished, No Distress, Anxious Eyes: Yes: WNL HENT: Yes: WNL Cardiovascular: Yes: Regular Rate and Rhythm Respiratory: Yes: CTA Bilaterally Gastrointestinal: Yes: Normal Bowel Sounds, Soft, Other (ostomies) Integumentary: Yes: Other (operative sites clean packing in place erythema decreased) Labs: CBC, BMP 04/20/16 06:00 04/20/16 06:00 INR, PTT INR 1.27 (0.82-1.09) H 04/19/16 07:25 - ....Imaging MRI: Report Reviewed Problem List - Problems (1) Cellulitis and abscess of foot Assessment/Plan: Puncture wound post-operative IV antibiotics Continue post-operative care MRI of right foot performed c/w osteomyelitis Family would like "second opinion" on reading . Will likely require 6 weeks of therapy with PICC Line. Final cultures noted with MSSA, enterococcus and E Coli from initial swab. 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 Code(s): Z96.659 - PRESENCE OF UNSPECIFIED ARTIFICIAL KNEE JOINT (7) Renal insufficiency Assessment/Plan: BUN/Creatinine 31/1.7 >> 27/1.5 >> 12/1.1>>13/1.0 Continue to follow in light of antibiotic therapy Code(s): N28.9 - DISORDER OF KIDNEY AND URETER, UNSPECIFIED (8) Hypoalbuminemia Assessment/Plan: Likely related to acute infection and underlying chronic disease as well as nutritional factors Code(s): E88.09 - OTH DISORDERS OF PLASMA-PROTEIN METABOLISM, NEC Assessment/Plan Plan as above MRI report reviewed. ID input regarding disposition and length of therapy appreciated
[2016-04-21] MEDS: ALPRAZolam 0.25 MG TABLET PO PRN ×2 (18:26→20:08)
[2016-04-22] MEDS: HYDROmorphone HCL CARPU-JECT 2 MG/1 ML DISP.SYRIN IVPB PRN ×6 (02:05→20:47)
[2016-04-22] MEDS: AMPICILLIN NA/SULBACTAM NA 3 GM in SODIUM CHLORIDE 100 ML IVPB SCH ×4 (02:29→21:12)
[2016-04-22] MEDS: SODIUM BICARBONATE 650 MG TABLET PO SCH ×3 (05:50→21:12)
[2016-04-22] MEDS ORDERED: PT OWN MED DRAWER 7, Y5N ONE ×2 (09:24→21:04)
[2016-04-22] MEDS: METOPROLOL SUCCINATE 50 MG TAB.SR.24H (FP) PO SCH ×2 (09:31→21:12)
[2016-04-22] MEDS: SERTRALINE HCL 50 MG TABLET (FP) PO SCH (09:31)
[2016-04-22] MEDS: amLODIPine BESYLATE 10 MG TABLET (FP) PO SCH (09:31)
[2016-04-22] MEDS: DOXAZOSIN MESYLATE 4 MG TABLET PO SCH (09:31)
[2016-04-22] MEDS: HEPARIN NA (PORCINE) 5,000 UNITS/ML 1ML VIAL SQ SCH ×2 (09:31→21:12)
--- NOTE | 2016-04-22 10:48 | PN ---
Progress Note, Physician Chief Complaint: Right foot cellulitis/abscess from puncture wound History of Present Illness: As per admission note, nail puncture wound from Saturday04/13/16, seen by Manager [facility] and treated with oral cefurxime 250 mg po bid Seen again Saturday with worsening of cellulitic reaction, now associated with increased pain. Admitted via ER and started on Zosyn and Vancomycin and seen by ID and surgeon. I+D of right foot infected area/abscess performed 04/17/16 with incisions on dorsal and plantar aspects of foot. Currently sitting up in chair OOB with foot raised. Bandage removed. Wounds appear clean erythema decreased dramatically on dorsum of right foot, with less overall swelling. Denies new chest discomfort, palpitations, LAMA. No chills or rigors. Marked anxiety improved. MRI of foot performed Report consistent with osteomyelitis. - Current Medication List Current Medications: Active Medications Alprazolam (Xanax -) 1 mg PO Q6H PRN PRN Reason: ANXIETY Last Admin: 04/21/16 20:08 Dose: 0.5 mg Amlodipine Besylate (Norvasc -) 10 mg PO DAILY [facility] [place] Last Admin: 04/22/16 09:31 Dose: 10 mg Doxazosin Mesylate (Cardura -) 4 mg PO DAILY [facility] [place] Last Admin: 04/22/16 09:31 Dose: 4 mg Heparin Sodium (Porcine) (Heparin -) 5,000 unit SQ BID [facility] [place] Last Admin: 04/22/16 09:31 Dose: 5,000 unit Hydromorphone HCl (Dilaudid Injection -) 1.5 mg IVPB Q2H PRN Last Admin: 04/22/16 07:43 Dose: 1.5 mg Ampicillin Sodium/Sulbactam (Sodium 3 gm/ Sodium Chloride) 100 mls @ 200 mls/ hr IVPB Q6H-IV [facility] [place] Last Admin: 04/22/16 09:31 Dose: 200 mls/hr Metoprolol Succinate (Toprol Xl -) 50 mg PO BID [facility] [place] Last Admin: 04/22/16 09:31 Dose: 50 mg Sertraline HCl (Zoloft -) 150 mg PO DAILY [facility] [place] Last Admin: 04/22/16 09:31 Dose: 150 mg Sodium Bicarbonate (Sodium Bicarbonate -) 1,300 mg PO TID [facility] [place] Last Admin: 04/22/16 05:50 Dose: 1,300 mg - Objective Vital Signs: Vital Signs Temperature 98.2 F 04/22/16 09:17 Pulse Rate 55 L 04/22/16 09:17 Respiratory Rate 16 04/22/16 09:17 Blood Pressure 168/88 04/22/16 09:17 O2 Sat by Pulse Oximetry (%) 96 04/21/16 09:00 Constitutional: Yes: Well Nourished, No Distress, Calm Eyes: Yes: WNL HENT: Yes: WNL Neck: Yes: Supple Cardiovascular: Yes: Regular Rate and Rhythm Respiratory: Yes: CTA Bilaterally Gastrointestinal: Yes: Normal Bowel Sounds, Soft, Other (ostomies). No: Tenderness Edema: No Neurological: Yes: Alert Labs: CBC, BMP 04/20/16 06:00 04/20/16 06:00 INR, PTT INR 1.27 (0.82-1.09) H 04/19/16 07:25 Problem List - Problems (1) Cellulitis and abscess of foot Assessment/Plan: Puncture wound post-operative IV antibiotics Continue post-operative care MRI of right foot performed c/w osteomyelitis Family would like "second opinion" on reading . Will likely require 6 weeks of therapy with PICC Line. Final cultures noted with MSSA, enterococcus and E Coli from initial swab. Case discussed with Dr Ortega. Will send home on antibiotic to cover MSSA and Ecoli which can be given once daily intravenously (?ceftriaxone?) to be taken to complete a full 6 week course, and one more week of oral enterococcus coverage (?ampicillen?) as this is less likely to be a pathogen of osteomyelitis and may have been selected out from the unsterile swab culture performed on admission after oral treatment prior to the admission by the Manager [facility] with Cefuroxime. 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 Code(s): Z96.659 - PRESENCE OF UNSPECIFIED ARTIFICIAL KNEE JOINT (7) Renal insufficiency Assessment/Plan: BUN/Creatinine 31/1.7 >> 27/1.5 >> 12/1.1>>13/1.0 Continue to follow in light of antibiotic therapy Code(s): N28.9 - DISORDER OF KIDNEY AND URETER, UNSPECIFIED (8) Hypoalbuminemia Assessment/Plan: Likely related to acute infection and underlying chronic disease as well as nutritional factors Code(s): E88.09 - OTH DISORDERS OF PLASMA-PROTEIN METABOLISM, NEC Assessment/Plan Plan as above MRI report reviewed. ID input regarding disposition and length of therapy appreciated Consider PICC line placement and discharge in AM on antibiotic protocol as described above
[2016-04-23] MEDS: HYDROmorphone HCL CARPU-JECT 2 MG/1 ML DISP.SYRIN IVPB PRN ×4 (00:22→13:36)
[2016-04-23] MEDS ORDERED: PT OWN MED DRAWER 7, Y5N ONE ×2 (02:00→09:02)
[2016-04-23] MEDS: AMPICILLIN NA/SULBACTAM NA 3 GM in SODIUM CHLORIDE 100 ML IVPB SCH ×2 (03:14→09:05)
[2016-04-23] MEDS: SODIUM BICARBONATE 650 MG TABLET PO SCH ×2 (05:32→13:36)
[2016-04-23] MEDS ORDERED: PICC LINE 8 ML FLUSH PROTOCOL IVPUSH PRN (09:02)
--- NOTE | 2016-04-23 09:04 | PN ---
Progress Note (short form) - Note Progress Note: no complaints Vital Signs Period Temp Pulse Resp BP Sys/Jackson Pulse Ox Last 24 Hr 97.8 F-98.2 F 55-60 16-20 143-168/69-88 98-98 cor-rrr lungs clear foot examined yesterday- wound is clean, no drainage CBC, BMP 04/20/16 06:00 04/20/16 06:00 Laboratory Tests 04/16/16 04/16/16 04/18/16 19:10 19:10 09:00 ESR 25 H C-Reactive Protein 16.6 H Vancomycin Trough 9.530 04/20/16 06:00 ESR C-Reactive Protein 2.8 H D Vancomycin Trough a/p s/p drainage of foot abscess probable osteomyelitis of the second toe d/w Dr Herzog d/w Patient he has complete one week of iv antibiotics plan for 5 more weeks iv rocephin 2 grams daily, po amox 500 tid d/w patient picc line, signs and symptoms of problems with picc (fever, drainage , arm swelling) and diarrhea to take probiotics/yogurt f/u in 2 weeks in our office with Dr Dutton [phone] Problem List - Problems (1) Osteomyelitis Code(s): M86.9 - OSTEOMYELITIS, UNSPECIFIED (2) Foot abscess, right Code(s): L02.611 - CUTANEOUS ABSCESS OF RIGHT FOOT
[2016-04-23] MEDS: SERTRALINE HCL 50 MG TABLET (FP) PO SCH (09:05)
[2016-04-23] MEDS: amLODIPine BESYLATE 10 MG TABLET (FP) PO SCH (09:05)
[2016-04-23] MEDS: METOPROLOL SUCCINATE 50 MG TAB.SR.24H (FP) PO SCH (09:05)
[2016-04-23] MEDS: DOXAZOSIN MESYLATE 4 MG TABLET PO SCH (09:06)
[2016-04-23] MEDS: HEPARIN NA (PORCINE) 5,000 UNITS/ML 1ML VIAL SQ SCH (09:07)
--- NOTE | 2016-04-23 09:33 | DS ---
Physical Examination Vital Signs: Vital Signs Temperature 98 F 04/23/16 05:21 Pulse Rate 58 L 04/23/16 05:21 Respiratory Rate 20 04/23/16 05:21 Blood Pressure 148/78 04/23/16 05:21 O2 Sat by Pulse Oximetry (%) 98 04/22/16 20:25 Constitutional: Yes: No Distress, Calm Eyes: Yes: WNL Cardiovascular: Yes: Regular Rate and Rhythm Respiratory: Yes: CTA Bilaterally Gastrointestinal: Yes: WNL, Other (ostomies) Wound/Incision: Yes: Clean/Dry Labs: CBC, BMP 04/20/16 06:00 04/20/16 06:00 Discharge Summary Reason For Visit: CELLULITIS AND ABSCESS OF FOOT Current Active Problems Osteomyelitis (Acute) Acidosis, hyperchloremic (Chronic) Dyslipidemia (Chronic) Foot abscess, right (Chronic) Hypertension (Chronic) Hypoalbuminemia (Chronic) Insulin resistance (Chronic) Renal insufficiency (Chronic) Hospital Course: See daily notes I+D of right foot puncture wound and abscess with two operative sites, one on dorsum the other on plantar surface Seen by ID service MRI c/w osteomyelitis On 6 week therapy for coverage of cultured pathogens. Condition: Fair - Instructions Diet, Activity, Other Instructions: Discussed with patient Continue diet Limited use of right foot. Home iv antibiotics Referrals: Nhan Herzog MD [Primary Care Provider] - Disposition: HOME - Home Medications Comprehensive Discharge Medication List: Ambulatory Orders Cholecalciferol (Vitamin D3) [Vitamin D3 -] 1,000 unit NR DAILY #0 tab 07/10/11 Loperamide HCl [Imodium -] 4 mg PO AC #0 capsule 07/10/11 Psyllium Seed [Metamucil] 5.85 gm PO TID #0 packet 07/10/11 Alprazolam [Xanax] 0.5 mg PO Q4H PRN 04/16/16 Androgel 1.62 mg Q2D 04/16/16 Atorvastatin Ca [Lipitor] 20 mg PO HS 04/16/16 Cholecalciferol (Vitamin D3) [Vitamin D3] 5,000 unit PO 04/16/16 Doxazosin Mesylate [Cardura] 4 mg PO 04/16/16 Doxazosin Mesylate [Cardura] 4 mg PO 04/16/16 Fenofibrate Nanocrystallized [Fenofibrate] 145 mg PO 04/16/16 Icosapent Ethyl [Vascepa] 1 gm PO BID 04/16/16 Metoprolol Succinate [Toprol XL -] 50 mg PO BID 04/16/16 Sertraline HCl [Zoloft] 150 mg PO HS 04/16/16 Sodium Bicarbonate - 1,300 mg PO TID 04/16/16 Amlodipine Besylate [Norvasc -] 10 mg PO DAILY tablet 04/23/16 Amoxicillin - [Amoxicillin 500mg Capsule -] 500 mg PO TID #105 capsule 04/23/16 Ceftriaxone [Rocephin 2Gm Ivpb (Pre-Docked)] 2 gm IVPB DAILY #35 bag 04/23/16 Picc Line Flush [Picc Line Flush -] 8 ml IVPUSH PRN PRN #35 ml 04/23/16
[2016-04-23] MEDS: cefTRIAXone 2 GM/100 ML BAG (PRE-DOCKED) IVPB SCH ×2 (11:12→13:37)
[2016-04-23] MEDS ORDERED: AMOXICILLIN 250 MG CAPSULE PO SCH (14:00)
[2016-04-23] MEDS ORDERED: AMOXICILLIN 500 MG CAPSULE (FP) PO SCH (14:00)
[2016-04-23 15:02] VITALS: BP 162/77; PULSE 64; TEMP 97.9
== END 2016-04-23 15:10 | disposition home or self-care (01) | DRG 603 ==
LOC: JER 15:09 → JERBED 19:57 → UNDOADMIN 20:45 → JERBED 20:45 → J6S 04-17 15:26
PROVIDERS: ADMIT Specialist; ATTEND Specialist
PROC: 0Y9M0ZX Drainage of Right Foot, Open Approach, Diagnostic (ICD-10-PCS; principal; 2016-04-17 13:00)
PROC: 02HV33Z Insertion of Infusion Device into Superior Vena Cava, Percutaneous Approach (ICD-10-PCS; 2016-04-23)
PROC: B5181ZA Fluoroscopy of Superior Vena Cava using Low Osmolar Contrast, Guidance (ICD-10-PCS; 2016-04-23)
DX: L03.115 Cellulitis of right lower limb (principal); E87.2 Acidosis; M86.171 Other acute osteomyelitis, right ankle and foot; L02.611 Cutaneous abscess of right foot; E78.5 Hyperlipidemia, unspecified; I10 Essential (primary) hypertension; Z96.659 Presence of unspecified artificial knee joint; E88.81 Metabolic syndrome and other insulin resistance; N28.9 Disorder of kidney and ureter, unspecified; E53.8 Deficiency of other specified B group vitamins; B19.20 Unspecified viral hepatitis C without hepatic coma; E88.09 Other disorders of plasma-protein metabolism, not elsewhere classified; B95.2 Enterococcus as the cause of diseases classified elsewhere; B95.61 Methicillin susceptible Staphylococcus aureus infection as the cause of diseases classified elsewhere
CPT/HCPCS: 36415; 36569; 71020-TC; 73630-TC-RT; 73721-RT-TC; 77001-TC; 80053; 81003; 81015; 85025; 85610; 85651; 86140; 87040; 87070; 87186; 87205; 93005; 93010; 94760; 99282-25; C1751; G0480; J1644

== ENCOUNTER 2016-05-06 19:42 | Observation (INO) | payer BC ==
[2016-05-06 19:53] VITALS: BMI 30.7
--- NOTE | 2016-05-06 20:37 | PDOC ---
History of Present Illness - General Chief Complaint: Edema Stated Complaint: RT ARM PAIN/SWOLLEN Time Seen by Provider: 05/06/16 20:00 - History of Present Illness Initial Comments: 05/06/16 20:37 CHIEF COMPLAINT: edema of R arm HISTORY OF PRESENT ILLNESS: 71 yo M with hx of HTN, HLD, Hep C presents to ED with swelling to R arm that began this afternoon. Patient was seen here in this ER three weeks ago and diagnosed with abscess and cellulitis of the R foot with possible osteomyelitis and discharged to home with PICC line for IV Ceftriaxone. Patient noticed this afternoon that his R arm was "a little swollen" compared to his L arm, and was told by his VNS service to come in for evaluation. Patient denies any pain, fever, chills, nausea, vomiting, diarrhea. PAST MEDICAL HISTORY: Denies past medical history FAMILY HISTORY: sister passed of stroke at 71, uncles/aunts had MIs SOCIAL HISTORY: Lives at home. Denies tobacco, alcohol, illicit drug use. SURGICAL HISTORY: cholecystecomy, perforated colon s/t diverticulitis, b/ knee replacements ALLERGIES: amlodipine REVIEW OF SYSTEMS General/Constitutional: Denies fever or chills. Denies weakness, weight change. HEENT: Denies change in vision. Denies ear pain or discharge. Denies sore throat. Cardiovascular: Denies chest pain or shortness of breath. Respiratory: Denies cough, wheezing, or hemoptysis. Gastrointestinal: Denies nausea, vomiting, diarrhea or constipation. Denies rectal bleeding. Genitourinary: Denies dysuria, frequency, or change in urination. Musculoskeletal: Denies joint or muscle swelling or pain. Denies neck or back pain. Skin: Swelling to R arm/hand. Denies rash or easy bruising. Neurologic: Denies headache, vertigo, loss of consciousness, or loss of sensation. PHYSICAL EXAM General Appearance: Well-appearing, appropriately dressed. HEENT: EOMI, PERRLA, normal voice. No conjunctival pallor. No photophobia, scleral icterus. Neck: Supple. Trachea midline. No tenderness, rigidity, carotid bruit, stridor , lymphadenopathy, or thyromegaly. Respiratory/Chest: Lungs CTAB. No shortness of breath, chest tenderness, respiratory distress, accessory muscle use. No crackles, rales, rhonchi, stridor , wheezing, dullness Cardiovascular: RRR. S1, S2. No JVD, murmur, bradycardia, tachycardia. Vascular Pulses: Dorsalis-Pedis (R): 2+, Dorsalis-Pedis (L): 2+ Lymphatic: No adenopathy, tenderness. Musculoskeletal/Extremities: Non-pitting 1+ edema to R arm and hand. Mild erythema. No tenderness, warmth, fluctuance, induration. 3cmx 3cm nontender, nonerythematous nodule to dorsal aspect of R arm secondary to previous IV site infiltrate. Normal inspection. FROM of all extremities, normal capillary refill. No tenderness to extremities, pedal edema, swelling, erythema or deformity. Integumentary: See MSK. Neurologic: medical territory manager II-XII intact. Fully oriented, alert. Appropriate mood/affect. Motor strength 5/5. No appreciable EOM palsy, facial droop or sensory deficit. 05/06/16 21:25 Past History - Past Medical History Allergies/Adverse Reactions: Allergies Allergy/AdvReac Type Severity Reaction Status Date / Time amlodipine besylate Allergy Verified 05/06/16 19:49 [From [facility]] IV dye Allergy Uncoded 05/06/16 19:50 Home Medications: Ambulatory Orders Loperamide HCl [Imodium -] 4 mg PO AC #0 capsule 07/10/11 Psyllium Seed [Metamucil] 5.85 gm PO TID #0 packet 07/10/11 Alprazolam [Xanax] 0.5 mg PO Q4H PRN 04/16/16 Atorvastatin Ca [Lipitor] 20 mg PO HS 04/16/16 Cholecalciferol (Vitamin D3) [Vitamin D3] 5,000 unit PO DAILY 04/16/16 Doxazosin Mesylate [Cardura] 4 mg PO DAILY 04/16/16 Fenofibrate Nanocrystallized [Fenofibrate] 145 mg PO DAILY 04/16/16 Icosapent Ethyl [Vascepa] 1 gm PO BID 04/16/16 Metoprolol Succinate [Toprol XL -] 50 mg PO BID 04/16/16 Sertraline HCl [Zoloft] 150 mg PO HS 04/16/16 Sodium Bicarbonate - 1,300 mg PO TID 04/16/16 Testosterone [Androgel] 1.62 gm TD Q2D #0 04/16/16 Amlodipine Besylate [Norvasc -] 10 mg PO DAILY tablet 04/23/16 Amoxicillin - [Amoxicillin 500mg Capsule -] 500 mg PO TID #105 capsule 04/23/16 Ceftriaxone [Rocephin 2Gm Ivpb (Pre-Docked)] 2 gm IVPB DAILY #35 bag 04/23/16 Picc Line Flush [Picc Line Flush -] 8 ml IVPUSH PRN PRN #35 ml 04/23/16 Cardiac Disorders: Yes GI Disorders: Yes (ileostomy) HTN: Yes Hypercholesterolemia: Yes - Surgical History Abdominal Surgery: Yes - Psycho/Social/Smoking Cessation Hx Suicidal Ideation: No Smoking Status: No Smoking History: Never smoked Have you smoked in the past 12 months: No Number of Cigarettes Smoked Daily: 0 Information on smoking cessation initiated: No Hx Alcohol Use: No Drug/Substance Use Hx: No Substance Use Type: Alcohol Hx Substance Use Treatment: No *Physical Exam - Vital Signs Last Vital Signs Temp Pulse Resp BP Pulse Ox 97.9 F 58 L 14 163/81 97 05/06/16 19:50 05/06/16 19:50 05/06/16 19:50 05/06/16 19:50 05/06/16 19:50 ED Treatment Course - LABORATORY CBC & Chemistry Diagram: 05/06/16 21:00 05/06/16 21:03 Medical Decision Making - Medical Decision Making 05/06/16 21:25 71 yo M with hx of HTN, HLD, Hep C presents to ED with swelling to R arm that began this afternoon s/p PICC line insertion and antibiotic administration x 3 weeks. -CBC, CMP, lactate, blood cx via PICC/PIV -Duplex US of R arm r/o DVT Labs unremarkable. US FINDINGS: The right internal jugular vein is patent and compressible. There is nonocclusive thrombus in the subclavian vein with a PICC line noted and occlusive thrombus in the axillary vein. The brachial vein is patent and compressible Superficial occlusive thrombus in the basilic vein The cephalic, radial and ulnar veins are patent and compressible. Read by Bret Zheng MD Per ED attending [facility], will admit to inpatient services. Discussed case with admitting MD Cates who accepts patient for inpatient admission. Will start patient on Lovenox and admit to med/surg. *DC/Admit/Observation/Transfer Diagnosis at time of Disposition: DVT (deep venous thrombosis) Qualifiers: DVT location: upper extremity Affected thrombotic vein of extremity: unspecified vein of extremity Laterality: right Chronicity: acute Qualified Code (s): I82.621 - Acute embolism and thrombosis of deep veins of right upper extremity - Discharge Dispostion Admit: Yes
[2016-05-06 21:51] LABS: BASOPHIL 0.7 % (0-2.0); EOSINOPHIL 2.5 % (0-4.5); MCH 26.5 pg (25.7-33.7); MCHC 32.1 g/dl (32.0-35.9); MEAN CELL VOLUME 82.6 fl (80-96); MEAN PLT VOLUME 8.5 fl (7.5-11.1); NEUTROPHILS 76.5 % (42.8-82.8); PLATELET COUNT 236 K/MM3 (134-434); RDW 18.1 % (11.9-15.9); WHITE BLOOD COUNT 8.7 K/mm3 (4.0-10.0)
[2016-05-06 22:19] LABS: ALBUMIN 3.4 g/dl (3.4-5.0); BILIRUBIN,TOTAL 0.2 mg/dL (0.2-1.0); CREATININE 1.3 mg/dL (0.7-1.3); TOT PROT 7.4 g/dl (6.4-8.2)
[2016-05-07 00:03] LABS: INR 1.17 (0.82-1.09); PROTHROMBIN TIME (PATIENT) 12.9 SEC (9.98-11.88)
[2016-05-07] MEDS ORDERED: ENOXAPARIN NA (PORCINE) 100 MG/1 ML DISP.SYRIN SQ ONE ×2 (00:13→00:16)
[2016-05-07] MEDS ORDERED: PICC LINE 8 ML FLUSH PROTOCOL IVPUSH PRN (00:40)
[2016-05-07] MEDS ORDERED: ONDANSETRON 4 MG/2 ML VIAL IVPB PRN (00:42)
[2016-05-07] MEDS ORDERED: ACETAMINOPHEN 325 MG TABLET (FP) PO PRN (00:42)
[2016-05-07] MEDS: ALPRAZolam 0.25 MG TABLET PO PRN ×3 (03:01→22:06)
[2016-05-07] MEDS: SODIUM BICARBONATE 650 MG TABLET PO SCH ×3 (06:46→21:27)
[2016-05-07] MEDS: PSYLLIUM 5.85 GM PACKET PO SCH ×3 (06:46→21:31)
[2016-05-07] MEDS ORDERED: ENOXAPARIN NA (PORCINE) 100 MG/1 ML DISP.SYRIN SQ SCH (08:00)
[2016-05-07] MEDS: CHOLECALCIFEROL (VITAMIN D3) 1,000 UNIT TABLET (FP) PO SCH (09:48)
[2016-05-07] MEDS: ENOXAPARIN NA (PORCINE) 100 MG/1 ML DISP.SYRIN SQ SCH ×2 (09:48→21:30)
[2016-05-07] MEDS: FENOFIBRIC ACID 135 MG CAP PO SCH (09:48)
[2016-05-07] MEDS: cefTRIAXone 2 GM/100 ML BAG (PRE-DOCKED) IVPB SCH (09:48)
[2016-05-07] MEDS: METOPROLOL SUCCINATE 50 MG TAB.SR.24H (FP) PO SCH ×2 (09:48→21:27)
[2016-05-07] MEDS: DOXAZOSIN MESYLATE 4 MG TABLET PO SCH (09:49)
[2016-05-07] MEDS ORDERED: PATIENT'S OWN MEDICATION (NON-FORMULARY) (Icosapent Ethyl [Vascepa] 1 GM) PO SCH (10:00)
[2016-05-07] MEDS ORDERED: amLODIPine BESYLATE 10 MG TABLET (FP) PO SCH (10:00)
[2016-05-07] MEDS ORDERED: TESTOSTERONE TD SCH (10:00)
--- NOTE | 2016-05-07 12:15 | HP ---
Admitting History and Physical - Primary Care Physician PCP: Nhan Herzog - Admission Chief Complaint: My left arm is swollen History of Present Illness: Mr Mary is a very pleasant 71 year old male with recent hospitalization for osteomyelitis and discharge with PICC line who comes in with a swollen arm. He says he was doing well at home, however noted that the arm with the PICC line began to get swollen. It was not painful or red. [facility] saw it and recommended he come in for evaluation as it may be a DVT. Aside from arm swelling he is without complaint. He denies fevers, chills, lightheadedness, dizziness, passing out, chest pain, shortness of breath, nausea, vomiting, diarrhea, constipation, difficulty or pain on urination, or swelling of the lower extremities. 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) Hepatobiliary: Yes: Hepatitis C Renal/: Yes: Renal Inusuff (stable) Heme/Onc: Yes: B12 Deficiency Infectious Disease: Yes: Other (Previous thigh abscess) Endocrine: Yes: Other (Insulin resistance H/O testosterone deficiency) - Past Surgical History Past Surgical History: Yes: Ileosotomy - Smoking History Smoking history: Never smoked Have you smoked in the past 12 months: No Aproximately how many cigarettes per day: 0 - Alcohol/Substance Use Hx Alcohol Use: No History of Substance Use: reports: None - Social History Usual Living Arrangement: Yes: With Spouse ADL: Independent History of Recent Travel: No Home Medications - Allergies Allergies/Adverse Reactions: Allergies Allergy/AdvReac Type Severity Reaction Status Date / Time Iodinated Contrast Media - Allergy Verified 05/24/16 12:22 Oral and IV dye Allergy Uncoded 05/24/16 12:22 - Home Medications Home Medications: Ambulatory Orders Loperamide HCl [Imodium -] 4 mg PO AC #0 capsule 07/10/11 Psyllium Seed [Metamucil] 5.85 gm PO TID #0 packet 07/10/11 Alprazolam [Xanax] 0.5 mg PO Q4H PRN 04/16/16 Atorvastatin Ca [Lipitor] 20 mg PO HS 04/16/16 Cholecalciferol (Vitamin D3) [Vitamin D3] 5,000 unit PO DAILY 04/16/16 Doxazosin Mesylate [Cardura] 4 mg PO DAILY 04/16/16 Fenofibrate Nanocrystallized [Fenofibrate] 145 mg PO DAILY 04/16/16 Icosapent Ethyl [Vascepa] 1 gm PO BID 04/16/16 Metoprolol Succinate [Toprol XL -] 50 mg PO BID 04/16/16 Sertraline HCl [Zoloft] 150 mg PO HS 04/16/16 Sodium Bicarbonate - 1,300 mg PO TID 04/16/16 Testosterone [Androgel] 1.62 gm TD Q2D #0 04/16/16 Amlodipine Besylate [Norvasc -] 10 mg PO DAILY tablet 04/23/16 Amoxicillin - [Amoxicillin 500mg Capsule -] 500 mg PO TID #105 capsule 04/23/16 Ceftriaxone [Rocephin 2Gm Ivpb (Pre-Docked)] 2 gm IVPB DAILY #35 bag 04/23/16 Picc Line Flush [Picc Line Flush -] 8 ml IVPUSH PRN PRN #35 ml 04/23/16 Acetaminophen [Tylenol .Regular Strength -] 650 mg PO Q4H PRN #0 tablet Apixaban [Eliquis -] 5 mg PO BID #60 tablet 05/09/16 Oxycodone HCl/Acetaminophen [Percocet 5-325 mg Tablet -] 1 tab PO Q6H PRN #15 tablet MDD 4 05/24/16 Family Disease History - Family Disease History Family History: Unremarkable Review of Systems Findings/Remarks: Full review of systems obtained, as per HPI and otherwise negative Physical Examination Vital Signs: Vital Signs Temperature 97.7 F 05/07/16 08:57 Pulse Rate 59 L 05/07/16 08:57 Respiratory Rate 20 05/07/16 08:57 Blood Pressure 168/73 05/07/16 08:57 O2 Sat by Pulse Oximetry (%) 98 05/07/16 09:00 Constitutional: Yes: Well Nourished, No Distress, Calm Eyes: Yes: Conjunctiva Clear, EOM Intact HENT: Yes: Atraumatic, Normocephalic Cardiovascular: Yes: Regular Rate and Rhythm. No: Gallop, Murmur, Rub Respiratory: Yes: Regular, CTA Bilaterally. No: Rales, Rhonchi, Wheezes Gastrointestinal: Yes: Normal Bowel Sounds, Soft. No: Distention, Tenderness Extremities: Yes: Other (PICC line in place) Edema: RUE: 1+ Imaging - Results Ultrasound: Report Reviewed Problem List - Problems (1) DVT (deep venous thrombosis) Code(s): I82.409 - ACUTE EMBOLISM AND THOMBOS UNSP DEEP VN UNSP LOWER EXTREMITY Qualifiers: DVT location: upper extremity Affected thrombotic vein of extremity: unspecified vein of extremity Laterality: right Chronicity: acute Qualified Code(s): I82.621 - Acute embolism and thrombosis of deep veins of right upper extremity (2) Osteomyelitis Code(s): M86.9 - OSTEOMYELITIS, UNSPECIFIED (3) Dyslipidemia Code(s): E78.5 - HYPERLIPIDEMIA, UNSPECIFIED (4) Hypertension Code(s): I10 - ESSENTIAL (PRIMARY) HYPERTENSION Assessment/Plan -Mr Mary was found to have a DVT -admit to the hospital -anticoagulation -continue IV antibiotics for osteomyelitis -continue home regimen
--- NOTE | 2016-05-07 13:02 | PN ---
Progress Note (short form) - Note Progress Note: ID consult dictated imp/reccd admitted for swelling of right arm has picc line for iv antibiotics for two weeks now noted swelling in his arm yesterday and came to ED no fevers, no diarrhea week 3 of iv antibiotics for osteo right foot s/p drainage of abscess right foot rocephin/amox admitted for dvt of RUE ?remove picc line awaiting vascular input on a/c continue antibiotics to complete 6 weeks-
--- NOTE | 2016-05-07 13:31 | PN ---
Progress Note (short form) - Note Progress Note: Vascular Surgery Pt seen and examined. RUE swelling from DVT in subclavian vein. Pt needs anticoagulation for 6 months of your choice. Can remove picc line and place in other arm. Will follow. Jose Alejandro Hairston DO
[2016-05-07] MEDS: AMOXICILLIN 500 MG CAPSULE (FP) PO SCH ×2 (15:56→21:27)
--- NOTE | 2016-05-07 19:37 | CONS ---
DATE OF CONSULTATION: DATE OF DICTATION: 05/07/2016 INFECTIOUS DISEASE CONSULTATION REQUESTING PHYSICIAN: Joe Cates M.D. CONSULTING PHYSICIAN: Carol Gan M.D. HISTORY OF PRESENT ILLNESS: This is a 71-year-old man who was recently hospitalized at [facility] after he had a nail puncture his foot. He developed an abscess and was admitted from April 16 to April 23. He underwent drainage of the abscess. He subsequently had an MRI of the foot that showed bone marrow edema of the 2nd metatarsal head and proximal phalanx. A PICC line was placed, and he was discharged home on IV Rocephin and oral amoxicillin. He has completed another 2 weeks of treatment. He denies any fevers, chills, nausea, vomiting, diarrhea. He was noted to yesterday some mild swelling of his right upper extremity. He called the PICC line company, was advised to come to the emergency room, where he had the duplex that showed a thrombosis of the subclavian and axillary vein. He was started on anticoagulants, and vascular surgery has been called for further management. I am asked to see him of management of his foot infection. He is otherwise well. He has no complaints. There is no diarrhea, abdominal pain. He notes decreased swelling of his leg. His has been doing his wound care with visiting nurse services. PAST MEDICAL HISTORY: Notable for hypertension, hyperlipidemia, hepatitis C, renal insufficiency, B12 deficiency, prior MRSA thigh abscess, testosterone deficiency. SURGICAL HISTORY: Notable for just tumor resection ileostomy and bilateral knee replacement. Most recently he had this abscess drained during his last admission in March of this year. ALLERGIES: He is allergic to IODINE and LEXAPRO. MEDICATION: At home include ceftriaxone 2 g daily, amoxicillin 500 p.o. t.i.d., testosterone gel, sodium bicarbonate, Zoloft, Metamucil, Toprol XL, Vascepa, fenofibrate, Cardura, vitamin D, Lipitor, Norvasc, Xanax, and IV ceftriaxone. FAMILY HISTORY: Noncontributory. SOCIAL HISTORY: He is , he lives with his . There is no history of cigarette use. REVIEW OF SYSTEMS: As per HPI. PHYSICAL EXAMINATION: General: He is awake and alert, in no acute distress. Vital signs: Temperature 97.7, pulse 59, blood pressure 168/73, respiratory rate 20. His PICC line site is clean. His right arm is slightly larger than his left. HEENT: Normocephalic. Eyes are anicteric. Neck: Supple. Lungs: Clear to auscultation. Heart: Regular rate and rhythm. Abdomen: Soft, nontender. Extremities: Notable for he has an opening on the right lower leg. There is no drainage, with iodoform packing, when removed the area looks clean. He still has some diffuse swelling of his toes and the dorsal surface of the foot, plantar surface looks good. He has some peeling skin. There is no purulence and/or warmth. LABORATORY: White count is 8.7, hemoglobin 14.8, platelets 236. BUN and creatinine are 32 and 1.3. LFTs are normal. Blood cultures have been sent. IMPRESSION: In summary, this is a 71-year-old man admitted for swelling of his right arm. He is noted to have DVT on the right upper extremity, awaiting vascular input about removing the PICC line. Would continue his antibiotics as ordered, Rocephin and amoxicillin. He has finished 3 of 6 weeks. Further recommendations to follow. CAROL GAN M.D. [id number] MTDD
--- NOTE | 2016-05-07 20:18 | CONSULT ---
Consult - text type - Consultation Consultation Note: /71 yo M with hx of HTN, HLD, Hep C presents with swelling of R arm . Patient was seen in the ER three weeks ago and diagnosed with abscess and cellulitis of the R foot with possible osteomyelitis and discharged home with PICC line for IV Ceftriaxone. Patient noticed that his R arm was "a little swollen" compared to his L arm, and was told by his VNS service to come in for evaluation. Patient denies any pain, fever, chills, nausea, vomiting, diarrhea. PAST MEDICAL HISTORY: HTN Hypercholesterolemia CKD ? Hep. C provoked DVT 9 yrs. ago after surgery FAMILY HISTORY: sister passed of stroke at 71, uncles/aunts had MIs SOCIAL HISTORY: Lives at home. Denies tobacco, alcohol, illicit drug use. SURGICAL HISTORY: cholecystecomy, perforated colon s/t diverticulitis, b/ knee replacements, s/p ileostomy ALLERGIES: amlodipine PHYSICAL EXAM Last Vital Signs Temp Pulse Resp BP Pulse Ox 97.2 F L 200 H 20 136/70 99 05/07/16 21:40 05/07/16 21:40 05/07/16 21:40 05/07/16 21:40 05/07/16 21:00 HEENT: TRISTIN, EOM Intact Oropharynx: No thrush, No mucositis Cor: RSR, No murmurs, No gallops Lungs: Clear to P&A Abd: Soft, Normal bowel sounds, No organomegaly Ext:No significant edema Allergies/Adverse Reactions: Allergies Allergy/AdvReac Type Severity Reaction Status Date / Time amlodipine besylate Allergy Verified 05/06/16 19:49 [From [facility]] IV dye Allergy Uncoded 05/06/16 19:50 Home Medications: Ambulatory Orders Loperamide HCl [Imodium -] 4 mg PO AC #0 capsule 07/10/11 Psyllium Seed [Metamucil] 5.85 gm PO TID #0 packet 07/10/11 Alprazolam [Xanax] 0.5 mg PO Q4H PRN 04/16/16 Atorvastatin Ca [Lipitor] 20 mg PO HS 04/16/16 Cholecalciferol (Vitamin D3) [Vitamin D3] 5,000 unit PO DAILY 04/16/16 Doxazosin Mesylate [Cardura] 4 mg PO DAILY 04/16/16 Fenofibrate Nanocrystallized [Fenofibrate] 145 mg PO DAILY 04/16/16 Icosapent Ethyl [Vascepa] 1 gm PO BID 04/16/16 Metoprolol Succinate [Toprol XL -] 50 mg PO BID 04/16/16 Sertraline HCl [Zoloft] 150 mg PO HS 04/16/16 Sodium Bicarbonate - 1,300 mg PO TID 04/16/16 Testosterone [Androgel] 1.62 gm TD Q2D #0 04/16/16 Amlodipine Besylate [Norvasc -] 10 mg PO DAILY tablet 04/23/16 Amoxicillin - [Amoxicillin 500mg Capsule -] 500 mg PO TID #105 capsule 04/23/16 Ceftriaxone [Rocephin 2Gm Ivpb (Pre-Docked)] 2 gm IVPB DAILY #35 bag 04/23/16 Picc Line Flush [Picc Line Flush -] 8 ml IVPUSH PRN PRN #35 ml 04/23/16 Current Medications Acetaminophen (Tylenol -) 650 mg PO Q4H PRN PRN Reason: FEVER OR PAIN Alprazolam (Xanax -) 0.5 mg PO Q4H PRN PRN Reason: ANXIETY Last Admin: 05/07/16 22:06 Dose: 0.5 mg Amoxicillin (Amoxicillin -) 500 mg PO TID [facility] Last Admin: 05/07/16 21:27 Dose: 500 mg Atorvastatin Calcium (Lipitor -) 20 mg PO HS [facility] Last Admin: 05/07/16 21:27 Dose: 20 mg Ceftriaxone Sodium (Rocephin 2gm Ivpb (Pre-Docked)) 2 gm IVPB DAILY [facility] Last Admin: 05/07/16 09:48 Dose: 2 gm Cholecalciferol (Vitamin D3 -) 5,000 unit PO DAILY [facility] Last Admin: 05/07/16 09:48 Dose: 5,000 unit Doxazosin Mesylate (Cardura -) 4 mg PO DAILY [facility] Last Admin: 05/07/16 09:49 Dose: 4 mg Enoxaparin Sodium (Lovenox -) 100 mg SQ BID [facility] Last Admin: 05/07/16 21:30 Dose: 100 mg Fenofibric Acid (Trilipix -) 135 mg PO DAILY [facility] Last Admin: 05/07/16 09:48 Dose: 135 mg IV Flush (Picc Line Flush) 8 ml IVPUSH PRN PRN PRN Reason: Protocol Metoprolol Succinate (Toprol Xl -) 50 mg PO BID [facility] Last Admin: 05/07/16 21:27 Dose: 50 mg Non-Formulary Medication (Icosapent Ethyl [Vascepa]) 1 gm PO BID [facility] Non-Formulary Medication (Testosterone [Androgel]) 1.62 gm TD Q2D [facility] Ondansetron HCl (Zofran Injection) 4 mg IVPB Q6H PRN PRN Reason: NAUSEA Psyllium Hydrophilic Mucilloid (Metamucil (Sugar-Free) -) 5.85 gm PO TID [facility] Last Admin: 05/07/16 21:31 Dose: Not Given Sertraline HCl (Zoloft -) 150 mg PO HS [facility] Last Admin: 05/07/16 21:27 Dose: 150 mg Sodium Bicarbonate (Sodium Bicarbonate -) 1,300 mg PO TID [facility] Last Admin: 05/07/16 21:27 Dose: 1,300 mg - Surgical History Abdominal Surgery: Yes - Psycho/Social/Smoking Cessation Hx nonsmoker - Vital Signs Last Vital Signs Temp Pulse Resp BP Pulse Ox 97.2 F L 200 H 20 136/70 99 05/07/16 21:40 05/07/16 21:40 05/07/16 21:40 05/07/16 21:40 05/07/16 21:00 Muscular hypertrophy HEENT: TRISTIN, EOM Intact Oropharynx: No thrush, No mucositis Cor: RSR, No murmurs, No gallops Lungs: Clear to P&A Abd: Soft, Normal bowel sounds, ileostomy + Ext:No significant edema Skin: No rashes, Integument intact Labs/Meds reviewed A/P 71 yo M with hx of HTN, HLD, Hep C presents with swelling of R arm , s/p PICC line insertion and antibiotic administration x 3 weeks for cellulitis/ osteomyelitis Lt. foot US FINDINGS: The right internal jugular vein is patent and compressible. There is nonocclusive thrombus in the subclavian vein with a PICC line noted and occlusive thrombus in the axillary vein. The brachial vein is patent and compressible Superficial occlusive thrombus in the basilic vein PICC line associated DVT of RUE. Provoked. will need anticoagulation for 3 months. PAtient with h/oprovoked DVT in the past 9yrs. ago. Agree with removing the PICC line and replacing in the other arm if cleared by ID. Discussed NoACs vs coumadin with patient. PAtient more comfortable with coumadin. But discussed that his ongoing need for 3 more weeksof antibiotics , interactions with coumadin and need for very close INR monitorong discussed. Given this scenarioof antibiotic interaction eliquis may be more preferable Patient is thinking about it. check PT/PTT continue lovenox for now patient on testosterone. Monitor CBC. May need to hold or reduce dose based on erythrocytosis
[2016-05-07] MEDS: ATORVASTATIN CA 20 MG TABLET (FP) PO SCH (21:27)
[2016-05-07] MEDS: SERTRALINE HCL 50 MG TABLET (FP) PO SCH (21:27)
[2016-05-08] MEDS: SODIUM BICARBONATE 650 MG TABLET PO SCH ×3 (06:39→21:57)
[2016-05-08] MEDS: ALPRAZolam 0.25 MG TABLET PO PRN ×2 (06:39→21:57)
[2016-05-08] MEDS: PSYLLIUM 5.85 GM PACKET PO SCH ×3 (06:56→21:58)
[2016-05-08] MEDS: AMOXICILLIN 500 MG CAPSULE (FP) PO SCH ×3 (07:00→21:57)
--- NOTE | 2016-05-08 07:48 | PN ---
Progress Note (short form) - Note Progress Note: Patient seen and examined. Chart reviewed. Currently sitting up in chair, in no distress. Minimal RUE discomfort despite obvious swelling c/w DVT diagnosis. Labs and acquisition consultant notes reviewed. Denies new chest discomfort, palpitations LAMA. Case discussed at length with patient and his . 05/07/16 21:40 Temperature 97.2 F L Pulse Rate Respiratory 20 Rate Blood Pressure 136/70 O2 Sat by Pulse Oximetry (%) Oxygen Delivery Method Chest Clear Cor RRR Abdomen Ostomy status with mucous fistula Ext Minimal lower extremity swelling Swelling of RUE with PICC line in place Neuro No new focal deficit Assessment and Plan DVT of RUE Provoked by PICC line Discuss placement of new PICC line with Lovenox and Eliquis dosing s well as potential discharge The patient agrees to Eliquis to dose at 10 mg po bid x 7 days then 5 mg po bid for 11 more weeks Will review with Dr Case Osteomyelitis foot On Rx Complete a full 6 weeks Will need new PICC line on left side HTN HPL IGT Ostomy status with Bicarb wasting enteropathy HepC CRI B/L TKRs
[2016-05-08 07:51] LABS: BASOPHIL 0.9 % (0-2.0); EOSINOPHIL 3.9 % (0-4.5); MCH 26.2 pg (25.7-33.7); MCHC 32.1 g/dl (32.0-35.9); MEAN CELL VOLUME 81.7 fl (80-96); MEAN PLT VOLUME 8.3 fl (7.5-11.1); PLATELET COUNT 198 K/MM3 (134-434); RDW 18.1 % (11.9-15.9); WHITE BLOOD COUNT 6.3 K/mm3 (4.0-10.0)
[2016-05-08] MEDS ORDERED: PICC LINE 8 ML FLUSH PROTOCOL IVPUSH PRN (07:51)
[2016-05-08 08:12] LABS: INR 1.27 (0.82-1.09)
[2016-05-08 08:15] LABS: ACTIVATED PTT 35.9 SECONDS (26.9-34.4)
[2016-05-08 08:29] LABS: ALK PHOS 43 U/L (45-117); ANION GAP 9 (8-16); BILIRUBIN,TOTAL 0.3 mg/dL (0.2-1.0); CALCIUM 8.7 mg/dL (8.5-10.1); CO2 26 mmol/L (21-32); CREATININE 1.1 mg/dL (0.7-1.3); GLUCOSE,RANDOM 99 mg/dL (74-106); MAGNESIUM 1.7 mg/dL (1.8-2.4); PHOSPHOROUS 2.5 mg/dL (2.5-4.9); SGOT/AST 26 U/L (15-37); SGPT/ALT 40 U/L (12-78); TOT PROT 6.5 g/dl (6.4-8.2)
[2016-05-08] MEDS ORDERED: PT OWN MED DRAWER 7, Y5N ONE ×2 (09:15→13:24)
[2016-05-08] MEDS: cefTRIAXone 2 GM/100 ML BAG (PRE-DOCKED) IVPB SCH (09:19)
[2016-05-08] MEDS: FENOFIBRIC ACID 135 MG CAP PO SCH (09:24)
[2016-05-08] MEDS: METOPROLOL SUCCINATE 50 MG TAB.SR.24H (FP) PO SCH ×2 (09:24→21:57)
[2016-05-08] MEDS: CHOLECALCIFEROL (VITAMIN D3) 1,000 UNIT TABLET (FP) PO SCH (09:24)
[2016-05-08] MEDS: ENOXAPARIN NA (PORCINE) 100 MG/1 ML DISP.SYRIN SQ SCH (09:28)
[2016-05-08] MEDS: DOXAZOSIN MESYLATE 4 MG TABLET PO SCH (11:30)
[2016-05-08] MEDS ORDERED: PHYTONADIONE 10 MG/1 ML AMP SQ ONE (17:15)
[2016-05-08] MEDS: APIXABAN 5 MG TABLET PO SCH (21:56)
[2016-05-08] MEDS: ATORVASTATIN CA 20 MG TABLET (FP) PO SCH (21:57)
[2016-05-08] MEDS: SERTRALINE HCL 50 MG TABLET (FP) PO SCH (21:57)
[2016-05-09] MEDS: ALPRAZolam 0.25 MG TABLET PO PRN ×2 (02:00→12:23)
[2016-05-09] MEDS: SODIUM BICARBONATE 650 MG TABLET PO SCH (06:02)
[2016-05-09] MEDS: AMOXICILLIN 500 MG CAPSULE (FP) PO SCH (06:03)
[2016-05-09] MEDS: PSYLLIUM 5.85 GM PACKET PO SCH (06:03)
[2016-05-09 06:25] VITALS: BP 156/78; PULSE 50; TEMP 97.4
--- NOTE | 2016-05-09 08:35 | DS ---
Physical Examination Vital Signs: Vital Signs Temperature 97.4 F L 05/09/16 06:00 Pulse Rate 50 L 05/09/16 06:00 Respiratory Rate 20 05/09/16 06:00 Blood Pressure 156/78 05/09/16 06:00 O2 Sat by Pulse Oximetry (%) 98 05/08/16 20:32 Constitutional: Yes: Well Nourished, No Distress Cardiovascular: Yes: Regular Rate and Rhythm Respiratory: Yes: CTA Bilaterally Gastrointestinal: Yes: Soft Wound/Incision: Yes: Clean/Dry Labs: CBC, BMP 05/08/16 06:30 05/08/16 06:30 Discharge Summary Reason For Visit: DEEP VEIN THROMBOSIS (DVT) Current Active Problems DVT (deep venous thrombosis) (Acute) Hospital Course: Please refer to daily notes DVT noted in RUE c/w PICC line New PICC line placed on left and patient converteted from Lovenox to Eliquis 5 mg po bid which we will continue for at least 3 months Patient will complete full 6 week course of oral and iv antibiotics as ordered Condition: Good - Instructions Diet, Activity, Other Instructions: Resume regular diet and activity as noted prior to this admission Keep pressure off of foot Referrals: Nhan Herzog MD [Primary Care Provider] - Disposition: HOME - Home Medications Comprehensive Discharge Medication List: Ambulatory Orders Loperamide HCl [Imodium -] 4 mg PO AC #0 capsule 07/10/11 Psyllium Seed [Metamucil] 5.85 gm PO TID #0 packet 07/10/11 Alprazolam [Xanax] 0.5 mg PO Q4H PRN 04/16/16 Atorvastatin Ca [Lipitor] 20 mg PO HS 04/16/16 Cholecalciferol (Vitamin D3) [Vitamin D3] 5,000 unit PO DAILY 04/16/16 Doxazosin Mesylate [Cardura] 4 mg PO DAILY 04/16/16 Fenofibrate Nanocrystallized [Fenofibrate] 145 mg PO DAILY 04/16/16 Icosapent Ethyl [Vascepa] 1 gm PO BID 04/16/16 Metoprolol Succinate [Toprol XL -] 50 mg PO BID 04/16/16 Sertraline HCl [Zoloft] 150 mg PO HS 04/16/16 Sodium Bicarbonate - 1,300 mg PO TID 04/16/16 Testosterone [Androgel] 1.62 gm TD Q2D #0 04/16/16 Amlodipine Besylate [Norvasc -] 10 mg PO DAILY tablet 04/23/16 Amoxicillin - [Amoxicillin 500mg Capsule -] 500 mg PO TID #105 capsule 04/23/16 Ceftriaxone [Rocephin 2Gm Ivpb (Pre-Docked)] 2 gm IVPB DAILY #35 bag 04/23/16 Picc Line Flush [Picc Line Flush -] 8 ml IVPUSH PRN PRN #35 ml 04/23/16 Acetaminophen [Tylenol .Regular Strength -] 650 mg PO Q4H PRN #0 tablet Apixaban [Eliquis -] 5 mg PO BID #60 tablet 05/09/16
[2016-05-09] MEDS: cefTRIAXone 2 GM/100 ML BAG (PRE-DOCKED) IVPB SCH (11:35)
[2016-05-09] MEDS: METOPROLOL SUCCINATE 50 MG TAB.SR.24H (FP) PO SCH (11:36)
[2016-05-09] MEDS: CHOLECALCIFEROL (VITAMIN D3) 1,000 UNIT TABLET (FP) PO SCH (11:37)
[2016-05-09] MEDS: FENOFIBRIC ACID 135 MG CAP PO SCH (11:37)
[2016-05-09] MEDS: DOXAZOSIN MESYLATE 4 MG TABLET PO SCH (11:45)
[2016-05-09] MEDS: APIXABAN 5 MG TABLET PO SCH (11:45)
== END 2016-05-09 13:06 | disposition home or self-care (01) ==
LOC: JER 19:42 → UNDOADMOB 05-07 00:20 → JERBED 05-07 00:20 → INTOOBSV 05-07 00:20 → JERBED 05-07 00:31 → UNDOADMIN 05-07 00:31 → JERBED 05-07 01:49 → J6S 05-07 01:49
PROVIDERS: ADMIT Internal Medicine; ATTEND Internal Medicine
PROC: 02HV33Z Insertion of Infusion Device into Superior Vena Cava, Percutaneous Approach (ICD-10-PCS; principal; 2016-05-08)
PROC: B548ZZA Ultrasonography of Superior Vena Cava, Guidance (ICD-10-PCS; 2016-05-08)
DX: T82.868A Thrombosis due to vascular prosthetic devices, implants and grafts, initial encounter (principal); E78.5 Hyperlipidemia, unspecified; B19.20 Unspecified viral hepatitis C without hepatic coma; E53.8 Deficiency of other specified B group vitamins; I12.9 Hypertensive chronic kidney disease with stage 1 through stage 4 chronic kidney disease, or unspecified chronic kidney disease; N18.9 Chronic kidney disease, unspecified; Y84.8 Other medical procedures as the cause of abnormal reaction of the patient, or of later complication, without mention of misadventure at the time of the procedure
CPT/HCPCS: 36415; 36556; 36569; 77001-TC; 80048; 80053; 83605; 83735; 84100; 85025; 85610; 85730; 87040; 93971; 99283-25; 99285-25; C1751; G0378

== ENCOUNTER 2016-05-24 12:16 | Emergency (ER) | payer BC ==
[2016-05-24 12:22] VITALS: BMI 30.7
--- NOTE | 2016-05-24 13:04 | PDOC ---
History of Present Illness - General History Source: Patient Exam Limitations: No Limitations - History of Present Illness Initial Comments: 05/24/16 14:26 The patient is a 71-year-old male with a significant past medical history of hypertension, HLD, Hep C, osteomyelitis of right foot, and presents to the emergency department with progressively worsening left groin pain. The patient reports that the pain is located in the crease between the lower abdomen and the leg, and is a shooting and radiating pain. He states the groin pain has been intermittent for a few weeks, and has suddenly become worse this morning, with a severity of 10/10. He states that there is a spasm in that region, and he cannot walk or lift the leg due to the pain. He states that he sleeps on his left hip occasionally and it is achy when he wakes up. He denies redness, warmth , or swelling in the groin region. He reports he has never experienced this pain before. He denies any trauma. The patient denies chest pain, shortness of breath, headache and dizziness. The patient denies fever, chills, nausea, vomit, diarrhea and constipation. The patient denies dysuria, frequency, urgency and hematuria. Allergies: Iodinated Contrast Media, IV dye Past Surgical History: ileostomy (2006), perforated colon s/p diverticulitis ( 2002), cholecystectomy, knee replacements Social History: former smoker PCP: Dr. Chad Herzog <Reva Godwin - Last Filed: 05/24/16 15:02> - General History Source: Patient, Family Exam Limitations: No Limitations <Dolly Ingram - Last Filed: 05/25/16 19:26> - General Chief Complaint: Pain Stated Complaint: PAIN Time Seen by Provider: 05/24/16 12:23 Past History <Reva Godwin - Last Filed: 05/24/16 15:02> - Past Medical History Cardiac Disorders: Yes GI Disorders: Yes (ileostomy) HTN: Yes Hypercholesterolemia: Yes Other medical history: PICC line left arm h/o osteomyelitis - Surgical History Abdominal Surgery: Yes Cholecystectomy: Yes - Psycho/Social/Smoking Cessation Hx Suicidal Ideation: No Smoking Status: No Smoking History: Former smoker Have you smoked in the past 12 months: No Number of Cigarettes Smoked Daily: 0 Information on smoking cessation initiated: No Hx Alcohol Use: No Drug/Substance Use Hx: No Substance Use Type: Alcohol Hx Substance Use Treatment: No <Juan JoseDolly - Last Filed: 05/25/16 19:26> - Past Medical History Allergies/Adverse Reactions: Allergies Allergy/AdvReac Type Severity Reaction Status Date / Time Iodinated Contrast Media - Allergy Verified 05/24/16 12:22 Oral and IV dye Allergy Uncoded 05/24/16 12:22 Home Medications: Ambulatory Orders Loperamide HCl [Imodium -] 4 mg PO AC #0 capsule 07/10/11 Psyllium Seed [Metamucil] 5.85 gm PO TID #0 packet 07/10/11 Alprazolam [Xanax] 0.5 mg PO Q4H PRN 04/16/16 Atorvastatin Ca [Lipitor] 20 mg PO HS 04/16/16 Cholecalciferol (Vitamin D3) [Vitamin D3] 5,000 unit PO DAILY 04/16/16 Doxazosin Mesylate [Cardura] 4 mg PO DAILY 04/16/16 Fenofibrate Nanocrystallized [Fenofibrate] 145 mg PO DAILY 04/16/16 Icosapent Ethyl [Vascepa] 1 gm PO BID 04/16/16 Metoprolol Succinate [Toprol XL -] 50 mg PO BID 04/16/16 Sertraline HCl [Zoloft] 150 mg PO HS 04/16/16 Sodium Bicarbonate - 1,300 mg PO TID 04/16/16 Testosterone [Androgel] 1.62 gm TD Q2D #0 04/16/16 Amlodipine Besylate [Norvasc -] 10 mg PO DAILY tablet 04/23/16 Amoxicillin - [Amoxicillin 500mg Capsule -] 500 mg PO TID #105 capsule 04/23/16 Ceftriaxone [Rocephin 2Gm Ivpb (Pre-Docked)] 2 gm IVPB DAILY #35 bag 04/23/16 Picc Line Flush [Picc Line Flush -] 8 ml IVPUSH PRN PRN #35 ml 04/23/16 Acetaminophen [Tylenol .Regular Strength -] 650 mg PO Q4H PRN #0 tablet Apixaban [Eliquis -] 5 mg PO BID #60 tablet 05/09/16 Oxycodone HCl/Acetaminophen [Percocet 5-325 mg Tablet -] 1 tab PO Q6H PRN #15 tablet MDD 4 05/24/16 Review of Systems - Review of Systems Able to Perform ROS?: Yes Comments:: 05/24/16 14:27 GENERAL/CONSTITUTIONAL: No fever or chills. No weakness. HEAD, EYES, EARS, NOSE AND THROAT: No change in vision. No ear pain or discharge. No sore throat. CARDIOVASCULAR: No chest pain or shortness of breath. RESPIRATORY: No cough, wheezing, or hemoptysis. GASTROINTESTINAL: No nausea, vomiting, diarrhea or constipation. GENITOURINARY: No dysuria, frequency, or change in urination. MUSCULOSKELETAL: (+) Left groin pain. No joint or muscle swelling. No neck or back pain. SKIN: No rash NEUROLOGIC: No headache, vertigo, loss of consciousness, or change in strength/ sensation. ENDOCRINE: No increased thirst. No abnormal weight change. HEMATOLOGIC/LYMPHATIC: No anemia, easy bleeding, or history of blood clots. ALLERGIC/IMMUNOLOGIC: No hives or skin allergy. <Godwin,Reva - Last Filed: 05/24/16 15:02> *Physical Exam - Vital Signs Last Vital Signs Temp Pulse Resp BP Pulse Ox 98.8 F 68 18 178/84 96 05/24/16 12:19 05/24/16 12:19 05/24/16 12:19 05/24/16 12:19 05/24/16 12:19 - Physical Exam Comments: 05/24/16 14:27 GENERAL: Awake, alert, and fully oriented. (+) Patient appears uncomfortable. HEAD: No signs of trauma EYES: PERRLA, EOMI, sclera anicteric, conjunctiva clear ENT: Auricles normal inspection, hearing grossly normal, nares patent, oropharynx clear without exudates. Moist mucosa NECK: Normal ROM, supple, no lymphadenopathy, JVD, or masses LUNGS: Breath sounds equal, clear to auscultation bilaterally. No wheezes, and no crackles HEART: Regular rate and rhythm, normal S1 and S2, no murmurs, rubs or gallops ABDOMEN: (+) Right abdominal ostomy. (+) Left ventral hernia. (+) Multiple well healed surgical sites on abdomen. Soft, nontender, normoactive bowel sounds. No involuntary guarding, no rebound. No masses GENITOURINARY: (+) Left groin tenderness. (+) No bruising, no testicular swelling or tenderness. EXTREMITIES: (+) Bandage on right foot. (+) Present PICC line in left upper extremity. No edema. No clubbing or cyanosis. No cords, erythema, or tenderness NEUROLOGICAL: Cranial nerves II through XII grossly intact. Normal speech SKIN: Warm, Dry, normal turgor, no rashes or lesions noted. <Reva Godwin - Last Filed: 05/24/16 15:02> - Vital Signs Last Vital Signs Temp Pulse Resp BP Pulse Ox 98.8 F 68 18 178/84 96 05/24/16 12:19 05/24/16 12:19 05/24/16 12:19 05/24/16 12:19 05/24/16 12:19 <Dolly Ingram - Last Filed: 05/25/16 19:26> Heart Score/ECG Review #1 ECG reviewed & interpreted by me at: 14:24 05/24/16 14:24 Twelve-lead EKG was performed and reviewed by me. There is normal sinus rhythm with a bradycardiac rate of 51bpm. The axis is normal. The intervals are normal - pr:146ms, QRS:102ms, QTc:442ms. No st elevations or depressions. T waves upright. <Dolly Ingram - Last Filed: 05/25/16 19:26> ED Treatment Course - LABORATORY CBC & Chemistry Diagram: 05/24/16 12:53 05/24/16 12:53 - ADDITIONAL ORDERS Additional order review: Laboratory Results 05/24/16 05/24/16 05/24/16 12:53 12:53 12:53 INR 1.29 H Sodium 133 L Potassium 4.8 D Chloride 102 Carbon Dioxide 18 L D Anion Gap 13 BUN 46 H D Creatinine 1.4 H D Creat Clearance w eGFR 49.96 Random Glucose 137 H D Calcium 8.7 Total Bilirubin 0.2 D AST 38 H D ALT 43 Alkaline Phosphatase 65 D Creatine Kinase 236 D CK-MB (CK-2) Rel Index Cancelled Troponin I < 0.02 Total Protein 7.7 Albumin 3.6 05/24/16 12:53 RBC 5.57 MCV 82.9 MCHC 32.2 RDW 17.0 H MPV 8.1 Neutrophils % 84.3 H D Lymphocytes % 5.4 L D Monocytes % 9.5 Eosinophils % 0.3 D Basophils % 0.5 - RADIOLOGY Radiograph Interpretation: 05/24/16 15:02 ABDOMEN & PELVIS CT W/O CONTRAST Reviewed by: Dr. Dolly Ingram Interpreted by: Dr. Kian Coreas IMPRESSION: Status post subtotal colectomy with only the distal sigmoid colon identified down to the rectosigmoid junction. An ostomy is present in the right lower anterior pelvic wall. There is a large of a defect in the anterior abdominal and upper pelvic wall consistent with a hernia with herniating mesenteric fat and small bowel loops. There is no evidence of small bowel obstruction. Left renal cyst measuring 5 cm. Possible small hiatus hernia Hepatomegaly Nonvisualization of the gallbladder. 6 mm pleural-based nodule in the right lower lobe, anteriorly abutting the fissure for which a nonemergent CT scan of the chest is needed to rule out the presence of other pulmonary nodules. - Medications Given in the ED: ED Medications Discontinued Medications Generic Name Dose Route Start Last Admin Trade Name Freq PRN Reason Stop Dose Admin Hydromorphone HCl 1 mg 05/24/16 13:09 05/24/16 13:10 Dilaudid Injection - IVPB 05/24/16 13:10 1 mg NOW ONE Administration Hydromorphone HCl 1 mg 05/24/16 13:16 05/24/16 13:35 Dilaudid Injection - IVPB 05/24/16 13:17 1 mg NOW ONE Administration Hydromorphone HCl 1 mg 05/24/16 13:26 05/24/16 13:35 Dilaudid Injection - IVPB 05/24/16 13:27 1 mg NOW ONE Administration <Reva Godwin - Last Filed: 05/24/16 15:02> - LABORATORY CBC & Chemistry Diagram: 05/24/16 12:53 05/24/16 12:53 <Dolly Ingram - Last Filed: 05/25/16 19:26> Medical Decision Making - Medical Decision Making 05/24/16 13:04 A portion of this note was documented by scribe services under my direction. I have reviewed the details of the note, within reason, and agree with the documentation with the following case summary and management plan written by me. Nursing documentation reviewed and incorporated into medical decision making This is a 71 yo M with a history of HTN, HLD, Hep C, perforated diverticulitis s /p ileostomy and mucous fistula, bicarb wasting enteropathy, Renal insufficiency , recent admission for osteomyelitis, with PICC line (RUE complicated by DVT, PICC moved to [facility]). Pt brought to the ER by due to left groin pain which began this morning No trauma No fevers, no chills No swelling No vomiting No diarrhea No bruising No abdominal pain, distention, tenderness No testicular swelling or pain On examination Pt has tenderness in left groin No testicular pain No hernia noted Will do basic labs Will do CT Pt repeatedly presenting to the Nurses station demanding pt be given Dilaudid 2mg IV 05/24/16 14:20 Laboratory Tests 05/08/16 05/08/16 05/24/16 06:30 06:30 12:53 WBC 6.3 9.6 D Hgb 14.6 14.9 Hct 46.2 Plt Count 198 183 INR Sodium Potassium Chloride Carbon Dioxide Anion Gap 9 BUN Creatinine 1.1 Random Glucose Creatine Kinase Troponin I 05/24/16 05/24/16 12:53 12:53 WBC Hgb Hct Plt Count INR 1.29 H Sodium 133 L Potassium 4.8 D Chloride 102 Carbon Dioxide 18 L D Anion Gap BUN 46 H D Creatinine 1.4 H D Random Glucose 137 H D Creatine Kinase 236 D Troponin I < 0.02 05/24/16 14:21 CT pending 05/24/16 14:32 Pt states pt needs his Amoxicillin 500 mg which he takes TID 05/24/16 16:11 CT demonstrates arthritic changes 05/24/16 16:12 XRAY marked arthritic changes CXR performed as I thought this patient might require admission His pain initially required IV pain medications Case reviewed with Dr Cates He saw this patient in the ER Plan is for discharge on percocet PT had previously tried Oxycodone which he didn't respond well to Will discharge to home Reviewed labs with patient and his Lab abnormalities are long standing problems that the patient has had in the past Plan is to continue Bicarb and increase hydration Clinical impression: Arthritis, pulled groin muscle, HCO3 wasting, dehydration Pt understands importance of follow up within 2-3 days Return to the ER for any other concerns or complaints <Dolly Ingram - Last Filed: 05/25/16 19:26> *DC/Admit/Observation/Transfer - Attestations Scribe Attestion: 05/24/16 14:28 Documentation prepared by Reva Godwin, acting as medical equipment sales for Dolly Ingram MD. <Reva Gdowin - Last Filed: 05/24/16 15:02> - Discharge Dispostion Admit: No <Dolly Ingram - Last Filed: 05/25/16 19:26> Diagnosis at time of Disposition: Arthritis - Discharge Dispostion Disposition: HOME Condition at time of disposition: Improved - Prescriptions Prescriptions: Oxycodone HCl/Acetaminophen [Percocet 5-325 mg Tablet -] 1 tab PO Q6H PRN #15 tablet MDD 4 PRN Reason: Severe Pain - Referrals Referrals: Nhan Herzog MD [Primary Care Provider] - - Patient Instructions Printed Discharge Instructions: DI for Groin Strain Additional Instructions: Anam Thank you for coming in to the ER Please take medications as prescribed Please be sure to stay hydrated as much as possible Please please follow up with Dr Herzog for repeat labs
[2016-05-24] MEDS ORDERED: HYDROmorphone HCL CARPU-JECT 1 MG/1 ML DISP.SYRIN IVPB ONE ×3 (13:09→13:26)
[2016-05-24] MEDS ORDERED: HYDROmorphone HCL CARPU-JECT 1 MG/1 ML DISP.SYRIN ONE (13:10)
[2016-05-24 13:23] LABS: BASOPHIL 0.5 % (0-2.0); EOSINOPHIL 0.3 % (0-4.5); MCH 26.7 pg (25.7-33.7); MCHC 32.2 g/dl (32.0-35.9); MEAN CELL VOLUME 82.9 fl (80-96); MEAN PLT VOLUME 8.1 fl (7.5-11.1); NEUTROPHILS 84.3 % (42.8-82.8); PLATELET COUNT 183 K/MM3 (134-434); WHITE BLOOD COUNT 9.6 K/mm3 (4.0-10.0)
[2016-05-24] MEDS ORDERED: HYDROmorphone HCL CARPU-JECT 2 MG/1 ML DISP.SYRIN ONE (13:27)
[2016-05-24 13:36] LABS: INR 1.29 (0.82-1.09); PROTHROMBIN TIME (PATIENT) 14.3 SEC (9.98-11.88)
[2016-05-24 13:53] LABS: ALBUMIN 3.6 g/dl (3.4-5.0); ANION GAP 13 (8-16); BILIRUBIN,TOTAL 0.2 mg/dL (0.2-1.0); CALCIUM 8.7 mg/dL (8.5-10.1); CO2 18 mmol/L (21-32); CREATININE 1.4 mg/dL (0.7-1.3); GLUCOSE,RANDOM 137 mg/dL (74-106); SGPT/ALT 43 U/L (12-78); TOT PROT 7.7 g/dl (6.4-8.2)
[2016-05-24 13:56] LABS: ALK PHOS 65 U/L (45-117); TROPONIN I < 0.02 ng/ml (0.00-0.05)
[2016-05-24 13:57] LABS: SGOT/AST 38 U/L (15-37)
--- NOTE | 2016-05-24 14:17 | EKG ---
Test Reason : Blood Pressure : / mmHG Vent. Rate : 051 BPM Atrial Rate : 051 BPM P-R Int : 146 ms QRS Dur : 102 ms QT Int : 480 ms P-R-T Axes : 085 053 038 degrees QTc Int : 442 ms SINUS BRADYCARDIA MINIMAL VOLTAGE CRITERIA FOR LVH, MAY BE NORMAL VARIANT BORDERLINE ECG WHEN COMPARED WITH ECG OF 17-APR-2016 00:21, SINUS RHYTHM HAS REPLACED ATRIAL FLUTTER INCOMPLETE RIGHT BUNDLE BRANCH BLOCK IS NO LONGER PRESENT Confirmed by AIMEE TREJO MD ([id number]) on 05/24/2016 2:17:27 PM Referred By: Confirmed By:AIMEE TREJO MD
[2016-05-24] MEDS ORDERED: AMOXICILLIN 500 MG CAPSULE (FP) PO ONE (14:30)
[2016-05-24] MEDS ORDERED: AMOXICILLIN 500 MG CAPSULE (FP) ONE (14:47)
[2016-05-24] MEDS ORDERED: ALPRAZolam 0.25 MG TABLET PO ONE (14:48)
[2016-05-24] MEDS ORDERED: ALPRAZolam 0.25 MG TABLET ONE (15:07)
[2016-05-24 16:46] VITALS: BP 148/75; PULSE 55; TEMP 97.5
== END 2016-05-24 16:50 | disposition home or self-care (01) ==
LOC: JER 12:16
PROC: 3E033NZ Introduction of Analgesics, Hypnotics, Sedatives into Peripheral Vein, Percutaneous Approach (ICD-10-PCS; principal; 2016-05-24)
DX: S39.011A Strain of muscle, fascia and tendon of abdomen, initial encounter (principal); X58.XXXA Exposure to other specified factors, initial encounter; Y93.9 Activity, unspecified; Y92.89 Other specified places as the place of occurrence of the external cause; M12.9 Arthropathy, unspecified; I10 Essential (primary) hypertension; E78.5 Hyperlipidemia, unspecified; E78.00 Pure hypercholesterolemia, unspecified; B18.2 Chronic viral hepatitis C; M86.8X7 Other osteomyelitis, ankle and foot; Z93.2 Ileostomy status; Z87.891 Personal history of nicotine dependence
CPT/HCPCS: 36415; 71020-TC; 73523-TC; 74176-TC; 80053; 82550; 82553; 84484; 85025; 85610; 86850; 86900; 86901; 93005; 93010; 99283-25